=== PATIENT | male | born 1940 ===

== ENCOUNTER 2023-01-18 12:33 | Emergency (ER) | payer MEDICARE, BC, SELFPAY ==
[2023-01-18 12:36] VITALS: BP 177/124; PULSE 105; RESP 16; TEMP 36.7; O2SAT 94; BMI 27.2
--- NOTE | 2023-01-18 12:39 | XR_ITS ---
WS: [id number] PORTABLE CHEST HISTORY: dyspnea/cough COMPARISON: None available. Prior CABG. Coarse interstitial thickening throughout both lungs. Slight elevation of the left hemidiaphragm with left pleural thickening. No dense areas of consolidation. No pleural effusion or pneumothorax. Cardiac size: Mildly enlarged cardiac silhouette. Mediastinum/Aorta: Mild atherosclerosis aorta. No osseous abnormality seen. IMPRESSION: 1. Chronic interstitial lung disease. Probably related to smoking. 2. No pneumonia. 3. Very slight blunting of the left costophrenic angle is probably pleural thickening. 4. Prior CABG.
--- NOTE | 2023-01-18 12:49 | ECG_ITS ---
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 Measurements Intervals [place] Rate: 96 P: 0 NV: 0 QRS: 2 QRSD: 106 T: 78 QT: 369 QTc: 468 Interpretive Statements ATRIAL FIBRILLATION WITH ABERRANT CONDUCTION OR VENTRICULAR PREMATURE COMPLEXES NONSPECIFIC ST & T-WAVE ABNORMALITY ABNORMAL RHYTHM ECG No previous ECG available for comparison Electronically Signed On 01-18-2023 14:26:07 CDT by Cody Hoyos M.D. [id number]
--- NOTE | 2023-01-18 13:04 | W.ED.SOB ---
HPI - SOB/Dyspnea General: Chief Complaint: Shortness of Breath/Dyspnea Stated Complaint: resp distress Time Seen by Provider: 01/18/23 12:38 Source: patient Mode of arrival: ambulatory History of Present Illness: HPI Narrative: 82-year-old male who presents to the emergency room with complaints of shortness of breath and orthopnea. Patient reports he has been short of breath for years but recently has worsened slightly and he has noticed more orthopnea. He denies any chest pain at this time no swelling in his legs. He does have a known history of coronary disease he is on baby aspirin daily and lisinopril. Known history of atrial fibrillation but is not on any anticoagulants. MD elicited complaint: shortness of breath and cough Onset (ago): year(s) Timing: intermittent Exacerbating factors: lying flat and exertion Relieving factors: rest and upright position Associated symptoms: Reports orthopnea; Deny abdominal pain, chest congestion, chest pain, cough, diaphoresis, dizziness, extremity pain, fever(s), hemoptysis, lightheadedness, myalgias, nausea, palpitations, paresthesias, polydipsia, polyuria, rash, sense of impending doom, syncope or vomiting Treatment prior to arrival: none Review of Systems Const: Denies: fever(s), chills, fatigue, malaise or diaphoresis Card: Reports: dyspnea on exertion and orthopnea; Denies: chest pain, palpitations, lightheadedness or syncope Resp: Reports: dyspnea; Denies: productive cough, non-productive cough, hemoptysis or chest congestion GI: Denies: abdominal pain, nausea or vomiting : Denies: flank pain, dysuria, urinary frequency or urinary urgency Musc: Denies: neck pain, back pain or extremity pain Skin/Breast: Denies: rash or pruritus Neuro: Denies: dizziness Endo: Denies: polyuria or polydipsia PFSH ED PFSH: Family History Sister Cancer breast CAD (coronary artery disease) Brother Diabetes CAD (coronary artery disease) Father Diabetes CAD (coronary artery disease) Social History Marital status: Physical Exam Const: GENERAL APPEARANCE: cooperative and comfortable ORIENTATION/CONSCIOUSNESS: Yes awake, Yes oriented to person, Yes oriented to place and Yes oriented to time HENMT: COMMON NORMALS: normocephalic, atraumatic and hearing grossly normal bilaterally HEAD & SCALP: normocephalic and atraumatic Resp: COMMON NORMALS: normal respiratory effort, No retractions and No use of accessory muscles AUSCULTATION: crackles Cardio: COMMON NORMALS: regular rate and No murmurs present (Cardio) RATE: regular rate RHYTHM: abnormal rhythm irregularly irregular GI: COMMON NORMALS: Soft to palpation and No hepatosplenomegaly present AUSCULTATION: Yes normoactive bowel sounds PALPATION: Yes Soft to palpation, No Tenderness to palpation present (GI), No Guarding due to palpation present (GI) and Yes No hepatosplenomegaly present Extremity: COMMON NORMALS: normal to inspection, capillary refill normal, no clubbing, cyanosis or edema, no calf tenderness and no pedal edema Neuro: SENSORIUM/ORIENTATION: Yes oriented to person, Yes oriented to place and Yes oriented to time Skin: COMMON NORMALS: no rashes or lesions noted GENERAL SKIN EXAM: no rashes or lesions noted Course Vital Signs: Vital signs: Vital Signs Temperature 98.0 F 01/18/23 12:36 Pulse Rate 86 01/18/23 15:46 Respiratory Rate 18 01/18/23 15:46 Blood Pressure 145/86 01/18/23 15:46 Pulse Oximetry 94 01/18/23 15:46 Oxygen Delivery Me thod Room Air 01/18/23 13:21 MDM - SOB/Dyspnea Medical Decision Making Symptoms improved after diuresis patient had significant amount of output. BNP is elevated. We will set him up for an outpatient echocardiogram start on Lasix 20 mg daily. Follow-up with his primary care doctor towards the end of this week. Medical Records I reviewed the patient's medical records. Lab Data I reviewed the patient's lab results. 01/18/23 12:58 01/18/23 12:58 Labs/Radiology: Laboratory Results WBC 9.9 10^3/uL (4.0-10.0) 01/18/23 12:58 RBC 4.72 10^6/uL (4.1-5.3) 01/18/23 12:58 Hgb 12.6 g/dL (11.7-16.6) 01/18/23 12:58 Hct 39.9 % (42.0-52.0) L 01/18/23 12:58 MCV 84.5 fl (80-94) 01/18/23 12:58 MCH 26.7 pg (28.0-34.0) L 01/18/23 12:58 MCHC 31.6 g/dL (30.0-36.0) 01/18/23 12:58 RDW 16.8 % (12.1-15.1) H 01/18/23 12:58 Plt Count 276 10^3/cmm (130-400) 01/18/23 12:58 MPV 11.0 fL (7.4-10.4) H 01/18/23 12:58 Neut % (Auto) 75.9 % 01/18/23 12:58 Lymph % (Auto) 14.4 % 01/18/23 12:58 [place] % (Auto) 8.3 % 01/18/23 12:58 Eos % (Auto) 0.8 % 01/18/23 12:58 Baso % (Auto) 0.3 % 01/18/23 12:58 Neut # (Auto) 7.49 10^3/uL (1.8-7.7) 01/18/23 12:58 Lymph # (Auto) 1.4 10^3/uL (0.8-4.8) 01/18/23 12:58 [place] # (Auto) 0.8 10^3/uL (0.2-0.9) 01/18/23 12:58 Eos # (Auto) 0.1 10^3/uL (0.0-0.8) 01/18/23 12:58 Baso # (Auto) 0.0 10^3/uL (0.0-0.1) 01/18/23 12:58 Nucleated RBC % (auto) 0 % 01/18/23 12:58 Nucleated RBCs # 0.0 /100WBC 01/18/23 12:58 Sodium 139 mmol/L (136-145) 01/18/23 12:58 Potassium 4.3 mmol/L (3.5-5.1) 01/18/23 12:58 Chloride 106 mmol/L (98-107) 01/18/23 12:58 Carbon Dioxide 21 mmol/L (22-29) L 01/18/23 12:58 Anion Gap 16.3 (5-19) 01/18/23 12:58 BUN 16 mg/dL (8-23) 01/18/23 12:58 Creatinine 0.7 mg/dL (0.7-1.2) 01/18/23 12:58 GFR Calculation Not Reportable 01/18/23 12:58 Glucose 102 mg/dL (65-115) 01/18/23 12:58 Calculated Osmolality 289 mOsm/kg (285-295) 01/18/23 12:58 Calcium 8.5 mg/dL (8.5-10.5) 01/18/23 12:58 Total Bilirubin 0.6 mg/dL (0.15-1.2) 01/18/23 12:58 AST 23 U/L (0-40) 01/18/23 12:58 ALT 25 U/L (0-41) 01/18/23 12:58 Alkaline Phosphatase 112 U/L (40-130) 01/18/23 12:58 Troponin T Baseline 24 ng/L (0-15) H 01/18/23 12:58 Troponin T 120 Minute 25.06 ng/L (0-15) H 01/18/23 15:08 Delta Troponin T 1.06 ABS# (0-10) 01/18/23 15:08 NT-Pro-B Natriuret Pep 4454 pg/mL (0-450) H 01/18/23 12:58 Total Protein 6.6 g/dL (6.6-8.7) 01/18/23 12:58 Albumin 4.0 g/dL (3.5-5.2) 01/18/23 12:58 Globulin 2.6 g/dL (1.3-4.6) 01/18/23 12:58 Discharge Plan Discharge Patient Disposition: Home Clinical Impression: Congestive heart failure, Benign essential HTN Condition: Stable Prescriptions: New Lasix 20 mg tablet 20 mg PO DAILY Qty: 30 0RF No Action lisinopril [Prinivil] 10 mg tablet 20 mg PO BID aspirin [Adult Low Dose Aspirin] 81 mg tablet,delayed release (DR/EC) 81 mg PO DAILY Discharge Orders: Discharge ED (Routine); Ordered 01/18/23 Ordered By: Paul Bull Referrals: Je Deal MD [Primary Care Provider] - Discharge Diet: Cardiac Discharge Activity: Increase activity as tolerated Patient Instructions: Opioid Safety, Pain Management Activity Restrictions/Additional Instructions: You were seen today for shortness of breath. Recommend these are Lasix 20 mg once daily. Continue your other medications. You should reevaluate with your doctor within the next week to have a basic metabolic profile rechecked and reevaluate your blood pressure. Return to emergency room any worsening problems. We did evaluate your oxygen needs, he did not qualify for supplemental oxygen when tested. Coding Level of Care Code ED Production Recovery Operator for Haresh Clark
[2023-01-18 13:06] LABS: Basophils % 0.3 %; Eosinophils # 0.1 10^3/uL (0.0-0.8); Eosinophils % 0.8 %; Hematocrit 39.9 % (42.0-52.0); Hemoglobin 12.6 g/dL (11.7-16.6); Lymphocytes # 1.4 10^3/uL (0.8-4.8); Lymphocytes % 14.4 %; Mean Corpuscular HGB Conc 31.6 g/dL (30.0-36.0); Mean Corpuscular Hemoglobin 26.7 pg (28.0-34.0); Mean Corpuscular Volume 84.5 fl (80-94); Monocytes # 0.8 10^3/uL (0.2-0.9); Monocytes % 8.3 %; Neutrophils # 7.49 10^3/uL (1.8-7.7); Neutrophils % 75.9 %; Nucleated Red Blood Cells % 0 %; Platelet Count 276 10^3/cmm (130-400); Red Blood Count 4.72 10^6/uL (4.1-5.3); Red Cell Distribution Width 16.8 % (12.1-15.1); White Blood Count 9.9 10^3/uL (4.0-10.0)
[2023-01-18] MEDS: FUROsemide 10 mg/mL SDV 4mL 40 MG IVP (13:18)
[2023-01-18 13:21] VITALS: BP 184/130; PULSE 109; RESP 24; O2SAT 92
[2023-01-18 13:22] LABS: Troponin(5th) Baseline 24 ng/L (0-15)
[2023-01-18 13:41] VITALS: BP 172/109; PULSE 109; RESP 16; O2SAT 92
[2023-01-18 13:43] LABS: Alanine Aminotransferase 25 U/L (0-41); Alkaline Phosphatase 112 U/L (40-130); Anion Gap 16.3 (5-19); Aspartate Amino Transferase 23 U/L (0-40); Blood Urea Nitrogen 16 mg/dL (8-23); Calcium 8.5 mg/dL (8.5-10.5); Carbon Dioxide 21 mmol/L (22-29); Chloride 106 mmol/L (98-107); Globulin 2.6 g/dL (1.3-4.6); Glucose 102 mg/dL (65-115); Osmolality Calculated 289 mOsm/kg (285-295); Potassium 4.3 mmol/L (3.5-5.1); Sodium 139 mmol/L (136-145); Total Bilirubin 0.6 mg/dL (0.15-1.2); Total Protein 6.6 g/dL (6.6-8.7)
[2023-01-18 14:23] LABS: NT Pro B Type Natriuretic Pept 4454 pg/mL (0-450)
--- NOTE | 2023-01-18 14:37 | ECG_ITS ---
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 Measurements Intervals [place] Rate: 97 P: 0 NV: 0 QRS: 13 QRSD: 108 T: 66 QT: 361 QTc: 461 Interpretive Statements ATRIAL FIBRILLATION NONSPECIFIC ST & T-WAVE ABNORMALITY ABNORMAL RHYTHM ECG Compared to ECG 01/18/2023 12:49:58 Ventricular premature complex(es) no longer present Aberrant conduction of supraventricular beat(s) no longer present T-wave abnormality still present Electronically Signed On 01-19-2023 3:52:01 CDT by Jeannie Celeste M.D. [id number]
[2023-01-18 14:54] VITALS: O2SAT 92; O2SAT 95
[2023-01-18 15:15] VITALS: BP 153/93; PULSE 86; RESP 20; O2SAT 93
[2023-01-18 15:46] VITALS: BP 145/86; PULSE 86; RESP 18; O2SAT 94
[2023-01-18 15:57] LABS: Troponin 5 2HR 25.06 ng/L (0-15); Troponin 5 2HR Delta 1.06 ABS# (0-10)
== END 2023-01-18 16:24 | disposition home or self-care (01) ==
PROVIDERS: Emergency Provider Family Medicine; PCP Urology
DX: I11.0 Hypertensive heart disease with heart failure (principal); I50.9 Heart failure, unspecified; Z79.82 Long term (current) use of aspirin; I70.0 Atherosclerosis of aorta
CPT/HCPCS: 36415; 71045; 80053; 83880; 84484; 85025; 93005; 96374; 99285; J1940

== ENCOUNTER 2023-02-19 08:58 | Outpatient (CLI) | payer MEDICARE, SELFPAY ==
--- NOTE | 2023-02-19 | USCV_ITS ---
Goran Dane Age: 83 Gender: M : 1940 Exam Date: 02/19/2023 10:41 Ordering Phys: CharlaTania amezquita Technologist: KEVAN [place] [facility] [place]: CHRONIC HEART FAILURE BP: 134 / 80 HR: 77 Rhythm: Sinus Technical Quality: Adequate MEASUREMENTS (Male / Female) Normal Values 2D ECHO LVOT Diameter 2.0 cm LV Ejection Fraction MOD 2C 28.7 % LV Ejection Fraction 2C AL 31.6 % LA Diameter 4.2 cm LA Width 5.4 cm LA Height 6.1 cm RA Width 3.3 cm RA Height 5.5 cm Aorta at Sinotubular Diameter 2.7 cm IVC Diameter 1.9 cm M-MODE Aortic Annulus Diameter 3.0 cm LA Ao Ratio MM 1.3 MV E Point Septal Separation 0.9 cm DOPPLER AV Peak Velocity 135.0 cm/s LVOT Peak Velocity 89.0 cm/s AV Area Cont Eq vti 2.0 cm squared AV Area Cont Eq pk 2.1 cm squared MV Peak Velocity 120.0 cm/s MV Area PHT 4.9 cm squared MV E' Velocity 50.5 cm/s Mitral E to MV E' Ratio 10.5 Mitral E to LV E' Lateral Ratio 9.4 Mitral E to LV E' Septal Ratio 12.0 TR Peak Velocity 213.0 cm/s TR Peak Gradient 18.1 mmHg TR Mean Velocity 177.3 cm/s TR Mean Gradient 12.9 mmHg TR Velocity Time Integral 77.6 cm TV Peak E Velocity 68.0 cm/s Right Atrial Pressure 3.0 mmHg Pulmonary Artery Systolic Pressu 21.1 mmHg PV Peak Velocity 87.0 cm/s RV Acceleration Time 0.1 s RV Ejection Time 0.3 s RV AcT/ET 0.3 FINDINGS Left Ventricle Mildly increased left ventricular cavity size. Moderately decreased left ventricular systolic function. Left ventricular ejection fraction is estimated at 30 %. Moderate global left ventricular hypokinesis. Rhythm precludes evaluation of diastolic function. Right Ventricle Normal right ventricular size and systolic function. Right ventricular systolic pressure 21.1 mmHg. Right Atrium Normal right atrial size. Left Atrium Moderately increased left atrial size. Mitral Valve Structurally normal mitral valve. No mitral valve stenosis. Mild mitral valve regurgitation. Aortic Valve Structurally normal trileaflet aortic valve. No aortic valve stenosis. No aortic valve regurgitation. Tricuspid Valve Structurally normal tricuspid valve. No tricuspid valve stenosis. Trace to mild tricuspid valve regurgitation. Pulmonic Valve Structurally normal pulmonic valve. No pulmonary valve stenosis. Trace pulmonary valve regurgitation. Pericardium No pericardial effusion. Aorta Normal size aortic root and proximal ascending aorta. IVC Normal IVC dimension with >50% respiratory change of the inferior vena cava. CONCLUSIONS 1. Mildly increased left ventricular cavity size. Moderately decreased left ventricular systolic function. Left ventricular ejection fraction is estimated at 30 %. Moderate global left ventricular hypokinesis. 2. Mild mitral valve regurgitation. 3. Moderately increased left atrial size. 4. No prior similar studies to compare. Jeannie Celeste MD (Electronically Signed) Final Date: 04 March 2023 16:14 S
== END 2023-02-19 08:59 | disposition home or self-care (01) ==
LOC: RAD 09:05
PROVIDERS: PCP Family Medicine; Visit Provider Nurse Practitioner Family
DX: I50.9 Heart failure, unspecified (principal); I34.0 Nonrheumatic mitral (valve) insufficiency; I51.7 Cardiomegaly
CPT/HCPCS: 93306

== ENCOUNTER 2025-04-28 05:04 | Inpatient (IN) | payer MEDICARE, SELFPAY ==
[2025-04-28] VITALS (22 sets, daily range): BP systolic 110–157; BP diastolic 70–106; PULSE 77–100; RESP 17–34; TEMP 36.3–36.9; O2SAT 89–97; BMI 25.8
--- OUTSIDE RECORDS SUMMARY | 2025-04-28 05:13 | XMS_ITS | Clinical Summary ---
Author Organization [facility] Address [address] [place]: Epic Prelude ADT SHAINA BONILLA [address] Care Team Providers Care Nitroglycerin Distributor Name Role Phone Ronen Macias MD Primary Care Provider [phone] [phone] Allergies No known active allergies Medications acetaminophen (TYLENOL) 500 mg tablet Take 500 mg by mouth every 6 hours as needed for Pain. 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 25 Tablet 3 5 Active Additional Information Patient not taking.Reported on 02/16/2025 sacubitriL-valsa rtan (ENTRESTO) 24-26 mg TabletIndication s:Chronic combined systolic (congestive) and diastolic (congestive) heart failure (CMS/HCC) Take 1 Tablet by mouth 2 times daily. 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 200 Tablet 3 5 Active apixaban (Eliquis) 5 mg tabletIndication s:Atrial fibrillation with slow ventricular response (CMS/HCC) Take 1 Tablet (5 mg) by mouth 2 times daily. 200 Tablet 3 5 Active empagliflozin (JARDIANCE) 10 mg tabletIndication s:Chronic combined systolic (congestive) and diastolic (congestive) heart failure (CMS/HCC) Take 1 Tablet (10 mg) by mouth daily in the morning. 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 03/01/2017 History of CVA (cerebrovascular accident) 2016 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 05/16/2016 Atrial fibrillation with slow ventricular respon se 05/16/2016 Sinus bradycardia 01/13/2016 PVC (premature ventricular contraction) 01/13/20 16 Nocturnal leg cramps 11/01/2014 Chronic anticoagulation 08/21/2013 GERD (gastroesophageal reflux disease) 1 Hyperlipidemia 09/22/2010 Overview (10/03/2020): LDL: 65 (09/15) HDL: 62 (09/15) Tobacco abuse, in remission 07/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 Overview (10/03/2020): US Aorta: Normal (07/16) Quit 1986 HTN (hypertension), benign 07/12/2008 History of gout Resolved Problems Problem Noted Date Diagnosed Date Resolved Date Cardiac LV ejection fraction 10-20% 07/31/2023 08/17/2023 Congestive heart failure 07/31/202305/2024 Elevated troponin 07/28/2023 08/17/[address] scan of head 07/28/202305/2024 NSTEMI (non-ST elevated myoc ardial infarction) 07/27/2023 08/17/2023 NOLVIA (acute kidney injury) 07/27/2023 AVF (arteriovenous fistula) 06/12/2021 08/17/2023 COPD 06/09/2018 06/09/2018 Acute on chronic systolic (c ongestive) heart failure 06/09/2018 08/17/2023 CVA (cerebral vascular accident) 07/22/2013 03/01/2017 Atrial fibrillation 07/22/2013 03/01/20 17 CAD (Coronary Artery Disease ), S/P CABG x 6 (03/13) 06/12/2021 Overview (10/03/2020): Followed by Dr. 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; Iron deficiency anemia, unspecified iron deficiency anemia type; Dual ICD (implantable cardioverter-defibril lator) in place; Microcytic anemia 02/07/2025 External Device Data STL ABSTRACTION Provider, Abstract 01/30/2025 Telephone [facility] [address] [address] Ronen Macias MD Patient Communication from Last 3 Months Immunizations Immunization Administration Dates Next Due ([employer])(12 YR UP) COVID-19 VACCINE - EMERGENCY USE AUTHORIZATION, MRNA, [id number](PF) 30 MCG/0.3 ML IM SUSP 01/31/2021,01/07/2021 (PNEUMOVAX 23)(50 YRS UP) PN EUMOCOCCAL POLYSACCHARIDE (PPV23) 0.5 ML, IM 04/05/2007 (PREVNAR 13)(6 WKS UP) PNEUM OCOCCAL CONJUGATE (PCV13) 0.5 ML, IM 05/18/2014 (TDVAX)(7 YRS UP) TETANUS AN D DIPHTHERIA TOXOIDS, ADSORBED (2 LF OF TETANUS TOXOID AND 2 LF OF DIPHTHERIA TOXOID), 0.5ML (PF), IM 03/30/2005 INFLUENZA VACCINE HIGH DOSE QUADRIVALENT 65 YR UP PF IM 05/06/2021(Deferred: Other (See comments) - Will be documented by nurse),03/28/2020 Influenza Seasonal Unspecifi ed Formulation IM 03/24/2007,03/24/2006,03/17/2004 Influenza Vaccine High Dose 65+ Yrs IM 1 06/19/2018,04/21/2018,03/01/2017,04/02,03/28/2015,03/01/2014 Influenza Vaccine Nasal 04/04/2008 Influenza Vaccine Split 3+ Yrs IM 02/27/2013,11/2009,03/13/2009 Influenza Vaccine Split 3+ Yrs PF IM 04/05/2012, 03/26/2011 Family History Medical History Relation Name Comments Diabetes Brother 1 Heart Disease Brother 1 Diabetes Father Heart Disease Father Breast Cancer Sister Heart Disease Sister Cancer Neg Hx Colon Cancer Neg Hx Relation Name Status Comments Brother 1 Brother 2 Father Sister Social History Tobacco Use Types Packs/Day Years Used Date Smoking Tobacco: Former Cigarettes 2 Q uit: 06/07/1986 Smokeless Tobacco: Never Tobacco Cessation:Counseling Given: Not Answered Alcohol Use Standard Drinks/Week Comments Yes 1 (1 standard drink = 0.6 oz pur e alcohol) occasional beer Feeling Safe Answer Date Recorded Are you in a relationship wi th someone who hurts you emotionally and/or physically? No 08/12/2023 Food Insecurity Answer Date Recorded Social/Environmental Concerns No concerns Transportation Needs Answer Date Record ed Social/Environmental Concerns No concerns Housing Stability Answer Date Recorded Social/Environmental Concerns No concerns Utility Needs Answer Date Recorded Social/Environmental Concerns No concerns Sex and Gender Information Value Date Recorded Sex Assigned at Not on file Legal Sex Male 1:21 PM RESOURCE CONSERVATION MANAGER Gender Identity Not on file Sexual Orientation Not on file Last Filed Vital Signs Vital Sign Reading Time Taken Comments Blood Pressure 116/74 02/16/2025 1:03 PM CDT Pulse 87 02/16/2025 1:03 PM CDT Temperature 36.1 C (97 F) 02/16/2025 1:03 PM CDT Respiratory Rate 18 02/16/2025 1:03 PM CDT Oxygen Saturation 99% 02/16/2025 1:03 PM CDT Inhaled Oxygen Concentration - - Weight 86.2 kg (190 lb) 02/16/2025 1:03 PM CDT Height 177.8 cm (5' 10 ) 02/16/2025 1:03 PM CDT Body Mass Index 27.26 02/16/2025 1:03 PM CDT Plan of Treatment Upcoming Encounters Date Type Department Care Team (Late st Contact Info) Description 06/11/2025 11:40 AM RESOURCE CONSERVATION MANAGER Office Visit [facility] Medicine [address] [address] Ronen Macias MD [address] [facility] [address] [place] [address] Health Maintenance Due Date Last Done Comments ZOSTER VACCINE (1 of 2) 1991 DTAP/TDAP/TD VACCINES (1 - Tdap) 03/31/2005 03/30/20 05 RSV VACCINE (60+ or ) (1 - 1-dose 75+ series) 01/20/2016 Medicare Advantage (MD) Preventative Visit/Annual Wellness Visit 06/07/2024 INFLUENZA VACCINE (#1) 2025 , 04/19/2019, 04/21/2018, Additional history exists COVID-19 Vaccine (3 - 2024-2 6 season) 2025 01/31/2021, 01/07/2021 PNEUMOCOCCAL VACCINE 50+ YEARS Completed 05/18/2014 , 04/05/2007 COLORECTAL SCREENING Discontinued 06/20/2018 Colorectal Cancer Screening Discontinued FIT-DNA Q 3 years Discontinued FIT/FOBT Q 1 year Discontinued Flex Sig/CT Colonography Q 5 years Discontinued Goals Goal Patient Goal Type Associated Problems Recent Progress Patient-Stated? Author Heart Failure Goal Care Plan Heart Failure Problem No Gunjan Sena LPN Medical Devices Implanted Type Area Town Manager Device Identifier Shelf Expiration Date Model / Serial / Lot Closure Perclose Prostyle Sut Mediate [id number] - [id number] Implanted:Qty : 1 on 07/29/2023 at Closure Device Right: Groin SAMANIEGO- VASC DEVICE 05/06/2025 [id number] / / [id number] Physician Asst-D [place] Xt Hf Quad Mri [id number] Surescan [id number] - [id number] Implanted:Qty : 1 on 07/30/2023 by Inocencio Doe MD at Defibrillator Left: Chest [employer]- CARD RHYTHM MGMT 10/02/2024 [id number] / [id number] 1S / . Lead Sprint Quattro Secure 62cm [id number] - Csc - [id number] Implanted:Qty : 1 on 07/30/2023 by Inocencio Doe MD at Lead Left: Chest [employer]- CRM - BULK BUY 05/11/2025 [id number] / [id number] 1V / Lead Attain [address]cm St Vent Quad [id number] - [id number] Implanted:Qty : 1 on 07/30/2023 by Inocencio Doe MD at Lead Left: Chest [employer]- CARD RHYTHM MGMT 05/26/2025 [id number] / [id number] 5V / 6fr Angioseal Vip- Implanted:Qty : 1 on 05/29/2021 by Travis Gee MD Other Right: Groin [id number] 02/04/2022 [id number] / / [id number] Description:6fr AngioSeal P implanted right femoral artery Procedures Procedure Name Priority Date/Time Associated Diagnosis Comments CBC WITH DIFFERENTIAL Routine 02/16/2025 1:35 PM CDT Microcytic anemia IRON, TIBC, AND PERCENT SATURATION Routine 02/16/2025 1:35 PM CDT Microcytic anemia from Last 3 Months Results * (ABNORMAL) IRON, TIBC, AND PERCENT SATURATION (02/16/2025 1:35 PM CDT) IRON 229(H) 50 - 180 mcg/dL [facility] TIBC 251 250 - 425 mcg/dL (calc) [facility] IRON % SATURATION 91(H) 20 - 48 % (calc) [facility] Comment: Test Performed at: [facility] [address] [place] [address] Michelle Alexander MD Blood 02/16/2025 1:35 PM CDT 02/17/2025 3:48 AM CDT us Ronen Macias MD CHEMISTRY ORDERABLES Aparna l Result [facility] [phone] [facility] [address] [place] [address] * (ABNORMAL) CBC WITH DIFFERENTIAL (02/16/2025 1:35 PM CDT) WBC 8.2 3.8 - 10.8 Thousand/u L [facility] RBC 4.76 4.20 - 5.80 Million/uL [facility] HEMOGLOBIN 15.1 13.2 - 17.1 g/dL [facility] HEMATOCRIT 48.2 38.5 - 50.0 % [facility] MCV 101.3(H) 80.0 - 100.0 fL [facility] MCH 31.7 27.0 - 33.0 pg [facility] MCHC 31.3(L) 32.0 - 36.0 g/dL [facility] Comment: For adults, a slight decrease in the calculated MCHC value (in the range of 30 to 32 g/dL) is most likely not clinically significant; however, it should be interpreted with caution in correlation with other red cell parameters and the patient's clinical condition. RDW 14.1 11.0 - 15.0 % [facility] PLATELETS 205 140 - 400 Thousand/u L [facility] MPV 11.4 7.5 - 12.5 fL [facility] NEUTROPHIL ABSOLUTE 5,961 1,500 - 7,800 cells/uL [facility] LYMPHOCYTE ABSOLUTE 1,287 850 - 3,900 cells/uL [facility] MONOCYTE ABSOLUTE 869 200 - 950 cells/uL [facility] EOSINOPHIL ABSOLUTE 41 15 - 500 cells/uL [facility] BASOPHILS ABSOLUTE 41 0 - 200 cells/uL [facility] NEUTROPHIL 72.7 % [facility] LYMPHOCYTES 15.7 % [facility] MONOCYTE 10.6 % [facility] EOSINOPHILS 0.5 % [facility] BASOPHILS 0.5 % [facility] Comment: Test Performed at: [facility] [address] [place] [address] Michelle Alexander MD Blood 02/16/2025 1:35 PM CDT 02/17/2025 3:48 AM CDT us Ronen Macias MD HEMATOLOGY ORDERABLES Fin al Result Performing Organization Address City/State/[facility] Co de Phone Number [facility] [phone] [facility] [address] [place] [address] from Last 3 Months Additional Health Concerns Active Problems Noted Date Diagnosed Date Heart Failure Problem 08/08/2024 Insurance [facility] [id number] [employer] Medicare Part D Advance Directives For more information, please contact: [phone] * Full Code (Latest Code Status on File) Date Activated Date Inactivated Comments 02/16/2025 1:29 PM * Full Code Date Activated Date Inactivated Comments 07/30/2023 5:43 PM 08/02/2023 1:56 PM * Full Code Date Activated Date Inactivated Comments 07/27/2023 5:32 PM 07/30/2023 5:43 PM * Full Code Date Activated Date Inactivated Comments 05/28/2021 4:47 PM 05/30/2021 1:28 PM Care Teams Nitroglycerin Distributor Relationship Specialty Start Date End Date Ronen Macias MD [address] [phone] PCP - General Family Practice 03/01/17
--- OUTSIDE RECORDS SUMMARY | 2025-04-28 05:13 | XMS_ITS | Encounter Summary ---
Author Organization [facility] Address [address] [place] [address] Care Team Providers Care Alarm Mechanism Adjuster Name Role Phone Ronen Macias MD Primary Care Provider [phone] Encounter Details Date Type Department Care Team (Latest Contact Info) Description 12/20/2002 Outpatient Historical [facility] Family Medicine [place] [address] [address] Emanuel Claudio MD [address] [facility] [address] [place] [address] SCREENING MAL NEOP-RECTUM (Primary Dx) Social History Tobacco Use Types Packs/Day Years Used Date Smoking Tobacco: Never Assessed Sex and Gender Information Value Date Recorded Sex Assigned at Not on file Legal Sex Male 6:13 AM CLIENT BUSINESS MANAGER Gender Identity Not on file Sexual Orientation Not on file documented as of this encounter Plan of Treatment Not on file documented as of this encounter Visit Diagnoses Diagnosis Screening for malignant neoplasm of the rectum- Primary documented in this encounter Additional Health Concerns Infection Onset Date Last Indicated Resolved Time R/O COVID-19 05/01/2020 05/01/2020 05/01/2020 6:25 AM CLIENT BUSINESS MANAGER documented as of this encounter Care Teams Alarm Mechanism Adjuster Relationship Specialty Start Date End Date Ronen Macias MD [address] [address] PCP - General Family Practice 03/01/17 documented as of this encounter
--- OUTSIDE RECORDS SUMMARY | 2025-04-28 05:13 | XMS_ITS | Encounter Summary ---
Author Organization [facility] Address [address] [place] [address] Care Team Providers Care Rubber Tire Curer Name Role Phone Ronen Macias MD Primary Care Provider [phone] Encounter Details Date Type Department Care Team (Latest Contact Info) Description 02/11/1999 Outpatient Historical [facility] Family Medicine [address] [address] Emanuel Claudio MD [address] [address] Backache, unspecified (Primary Dx); Routine medical exam; Screening for malignant neoplasm of the rectum Social History Tobacco Use Types Packs/Day Years Used Date Smoking Tobacco: Never Assessed Sex and Gender Information Value Date Recorded Sex Assigned at Not on file Legal Sex Male 6:13 AM TUMBLER TENDER Gender Identity Not on file Sexual Orientation Not on file documented as of this encounter Plan of Treatment Not on file documented as of this encounter Visit Diagnoses Diagnosis Backache, unspecified- Primary Routine medical exam Routine general medical examination at a health care facility Screening for malignant neoplasm of the rectum documented in this encounter Additional Health Concerns Infection Onset Date Last Indicated Resolved Time R/O COVID-19 05/01/2020 05/01/2020 05/01/2020 6:25 AM TUMBLER TENDER documented as of this encounter Care Teams Rubber Tire Curer Relationship Specialty Start Date End Date Ronen Macias MD [address] [address] PCP - General Family Practice 03/01/17 documented as of this encounter
--- OUTSIDE RECORDS SUMMARY | 2025-04-28 05:13 | XMS_ITS | Encounter Summary ---
Author Organization [facility] Address [address] [place] [address] Care Team Providers Care Frame Table Operator Name Role Phone Ronen Macias MD Primary Care Provider [phone] Encounter Details Date Type Department Care Team (Late st Contact Info) Description 06/16/2007 Outpatient Historical [facility] Family Medicine [address] [phone] Vladislav Nielson MD NO ADDRESS ON FILE Social History Tobacco Use Types Packs/Day Years Used Date Smoking Tobacco: Never Assessed Sex and Gender Information Value Date Recorded Sex Assigned at Not on file Legal Sex Male 6:13 AM FIRE DEPARTMENT MARINE ENGINEER Gender Identity Not on file Sexual Orientation Not on file documented as of this encounter Plan of Treatment Not on file documented as of this encounter Visit Diagnoses Not on filedocumented in this encounter Additional Health Concerns Infection Onset Date Last Indicated Resolved Time R/O COVID-19 05/01/2020 05/01/2020 05/01/2020 6:25 AM FIRE DEPARTMENT MARINE ENGINEER documented as of this encounter Care Teams Frame Table Operator Relationship Specialty Start Date End Date Ronen Macias MD [address] [address] PCP - General Family Practice 03/01/17 documented as of this encounter
--- OUTSIDE RECORDS SUMMARY | 2025-04-28 05:13 | XMS_ITS | Encounter Summary ---
Author Organization [facility] Address [address] [place] [address] Care Team Providers Care Goat Farmer Name Role Phone Ronen Macias MD Primary Care Provider [phone] Encounter Details Date Type Department Care Team (Latest Contact Info) Description 04/22/2007 Outpatient Historical [facility] [address] [place] [address] Trell Omalley MD [address] [facility] [address] [place] [address] Congestive Heart Failure, Unspecified (CMS/HCC) Social History Tobacco Use Types Packs/Day Years Used Date Smoking Tobacco: Never Assessed Sex and Gender Information Value Date Recorded Sex Assigned at Not on file Legal Sex Male 6:13 AM BUILDING CLEANING SUPERVISOR Gender Identity Not on file Sexual Orientation Not on file documented as of this encounter Plan of Treatment Not on file documented as of this encounter Visit Diagnoses Diagnosis Congestive heart failure, unspecified documented in this encounter Additional Health Concerns Infection Onset Date Last Indicated Resolved Time R/O COVID-19 05/01/2020 05/01/2020 05/01/2020 6:25 AM BUILDING CLEANING SUPERVISOR documented as of this encounter Care Teams Goat Farmer Relationship Specialty Start Date End Date Ronen Macias MD [address] [phone] PCP - General Family Practice 03/01/17 documented as of this encounter
--- OUTSIDE RECORDS SUMMARY | 2025-04-28 05:13 | XMS_ITS | Encounter Summary ---
Author Organization [facility] Address [address] [place] [address] Care Team Providers Care Defense Attorney Name Role Phone Ronen Macias MD Primary Care Provider [phone] [phone] Encounter Details Date Type Department Care Team (Latest Contact Info) Description 07/25/2004 Outpatient Historical [facility] Family Medicine [place] [address] [address] Emanuel Claudio MD [address] [address] ACTINIC KERATOSIS (Primary Dx); HYPERTENSION NOS Social History Tobacco Use Types Packs/Day Years Used Date Smoking Tobacco: Never Assessed Sex and Gender Information Value Date Recorded Sex Assigned at Not on file Legal Sex Male 6:13 AM MORTARMAN Gender Identity Not on file Sexual Orientation Not on file documented as of this encounter Plan of Treatment Not on file documented as of this encounter Visit Diagnoses Diagnosis Actinic keratosis- Primary Unspecified essential hypertension documented in this encounter Additional Health Concerns Infection Onset Date Last Indicated Resolved Time R/O COVID-19 05/01/2020 05/01/2020 05/01/2020 6:25 AM MORTARMAN documented as of this encounter Care Teams Defense Attorney Relationship Specialty Start Date End Date Ronen Macias MD [address] [address] PCP - General Family Practice 03/01/17 documented as of this encounter
--- OUTSIDE RECORDS SUMMARY | 2025-04-28 05:13 | XMS_ITS | Clinical Summary ---
Author Organization [facility] Address [address] [place] [address] Care Team Providers Care Ged Preparation Teacher Name Role Phone Ronen Macias MD Primary Care Provider +1 [phone] Allergies No known active allergies Medications aspirin (ECOTRIN EC) 81 mg Tablet, Delayed Release (E.C.) Take 1 Tab by mouth daily. 11/07/2013 Active nitroglycerin (NITROSTAT) 0.4 mg Tablet, Sublingual Place 1 Tablet (0.4 mg) under tongue every 5 minutes as needed for Chest Pain Not to exceed 3 doses, if no relief of chest pain to seek medical attention. Do not take if systolic B/P below 100. 25 Tablet 2 05/11/2016 Active multivitamin (DAILY-LENNOX) tablet Take 1 Tablet by mouth daily. Active furosemide (LASIX) 20 mg tablet Take 1 Tablet (20 mg) by mouth daily. 90 Tablet 3 07/31/2019 Active potassium chloride (KLOR-CON) 10 mEq Extended Release tablet Take 1 Tablet (10 mEq) by mouth daily. 90 Tablet 3 07/31/2019 Active Xarelto 20 mg Tablet TAKE 1 TABLET DAILY 90 Tablet 3 01/08/2020 Active esomeprazole (NexIUM) 40 mg Capsule, Delayed Release(E.C.) Take 1 Capsule (40 mg) by mouth daily before breakfast. 30 Capsule 05/01/2020 Active ferrous sulfate 325 mg (65 mg iron) tablet Take 1 Tablet (325 mg) by mouth 2 times daily with meals. 180 Tablet 1 05/04/2020 Active lisinopriL (PRINIVIL) 10 mg tablet TAKE 2 TABLETS TWICE A DAY (DOSE CHANGE) 360 Tablet 3 07/24/2020 Active Active Problems Problem Noted Date Diagnosed Date Congestive heart failure 06/09/2018 Cognitive deficits following stroke 03/01/2017 History of CVA (cerebrovascular accident) 2016 Coronary artery disease invo lving [place] coronary artery of [place] heart without angina pectoris 05/16/2016 Paroxysmal atrial fibrillation 05/16/2016 Sinus bradycardia 01/13/2016 PVC (premature ventricular contraction) 01/13/20 16 Nocturnal leg cramps 11/01/2014 Chronic anticoagulation 08/21/2013 GERD (gastroesophageal reflux disease) 1 Hyperlipidemia 09/22/2010 Overview (09/24/2010): LDL: 65 (09/15) HDL: 62 (09/15) HTN (hypertension), benign 07/12/2008 Tobacco abuse, 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 Omalley Resolved Problems Problem Noted Date Diagnosed Date Resolved Date COPD 06/09/2018 06/09/2018 CVA (cerebral vascular accident) 07/22/2013 03/01/2017 Atrial fibrillation 07/22/2013 03/01/20 17 Immunizations Immunization Administration Dates Next Due (PNEUMOVAX 23)(50 YRS UP) PN EUMOCOCCAL POLYSACCHARIDE (PPV23) 0.5 ML, IM 04/05/2007 (PREVNAR 13)(6 WKS UP) PNEUM OCOCCAL CONJUGATE (PCV13) 0.5 ML, IM 05/18/2014 (TDVAX)(7 YRS UP) TETANUS AN D DIPHTHERIA TOXOIDS, ADSORBED (2 LF OF TETANUS TOXOID AND 2 LF OF DIPHTHERIA TOXOID), 0.5ML (PF), IM 03/30/2005 INFLUENZA VACCINE HIGH DOSE QUADRIVALENT 65 YR UP PF IM 03/28/2020 Influenza Seasonal Unspecifi ed Formulation IM 03/24/2007,03/24/2006,03/17/2004 [...] Used Date Smoking Tobacco: Former Cigarettes 2 40 0 [birth year]07/1945 - 06/07/1986 Smokeless Tobacco: Never Tobacco Cessation:Counseling Given: No Alcohol Use Standard Drinks/Week Comments Yes 1 (1 standard drink = 0.6 oz pur e alcohol) occ Sex and Gender Information Value Date Recorded Sex Assigned at Not on file Legal Sex Male 6:13 AM SLEEP TECHNICIAN Gender Identity Not on file Sexual Orientation Not on file Last Filed Vital Signs Vital Sign Reading Time Taken Comments Blood Pressure 138/82 05/03/2020 10:15 AM SLEEP TECHNICIAN Pulse 88 05/03/2020 10:01 AM SLEEP TECHNICIAN Temperature 36.8 C (98.2 F) 05/03/2020 10:01 AM SLEEP TECHNICIAN Respiratory Rate 16 05/03/2020 10:01 AM SLEEP TECHNICIAN Oxygen Saturation 98% 05/03/2020 10:01 AM SLEEP TECHNICIAN Inhaled Oxygen Concentration - - Weight 9.979 kg (22 lb) 05/03/2020 10:01 AM SLEEP TECHNICIAN Height 179.1 cm (5' 10.5 ) 05/03/2020 10:[address] Body Mass Index 3.11 05/03/2020 10:01 AM SLEEP TECHNICIAN Plan of Treatment Health Maintenance Due Date Last Done Comments ZOSTER VACCINE (1 of 2) 1991 DTAP/TDAP/TD VACCINES (1 - Tdap) 03/31/2005 03/30/20 05 RSV VACCINE (60+ or ) (1 - 1-dose 75+ series) 01/20/2016 Medicare Ad[place]age ([place]) Preventative Visit/Annual Wellness Visit 06/07/2024 11/01/2014, 04/13/2005 INFLUENZA VACCINE (#1) 2025 , 04/19/2019, 04/21/2018, Additional history exists FIT/FOBT Q 1 year Discontinued 06/29/2001, , 02/11/1999 PNEUMOCOCCAL VACCINE 50+ YEARS Completed 05/18/2014 , 04/05/2007 COLORECTAL SCREENING Discontinued 06/20/2018 Colorectal Cancer Screening Discontinued FIT-DNA Q 3 years Discontinued Flex Sig/CT Colonography Q 5 years Discontinued Insurance [employer] PPO MCR Advance Directives For more information, please contact: [phone] * Full Code (Latest Code Status on File) Date Activated Date Inactivated Comments 06/20/2018 12:02 PM 06/20/2018 4:05 PM * Full Code Date Activated Date Inactivated Comments 05/17/2014 10:03 AM 05/18/2014 12:46 PM * Full Code Date Activated Date Inactivated Comments 05/14/2014 12:32 PM 05/17/2014 10:03 AM * Full Code Date Activated Date Inactivated Comments 09/18/2013 1:37 PM 09/18/2013 6:00 PM * Full Code Date Activated Date Inactivated Comments 09/18/2013 11:31 AM 09/18/2013 1:37 PM Care Teams Ged Preparation Teacher Relationship Specialty Start Date End Date Ronen Macias MD [address] [address] PCP - General Family Practice 03/01/17
--- OUTSIDE RECORDS SUMMARY | 2025-04-28 05:13 | XMS_ITS | Encounter Summary ---
Author Organization [facility] Address [address] [place] [address] Care Team Providers Care Staff Anesthesiologist Name Role Phone Ronen Macias MD Primary Care Provider [phone] [phone] Encounter Details Date Type Department Care Team (Late st Contact Info) Description 05/23/2007 Outpatient Historical [facility] Cardiology- [place] [address] [place] [address] Trell Omalley MD [address] [facility] [address] [place] [address] Social History Tobacco Use Types Packs/Day Years Used Date Smoking Tobacco: Never Assessed Sex and Gender Information Value Date Recorded Sex Assigned at Not on file Legal Sex Male 6:13 AM STRINGED INSTRUMENT REPAIRER Gender Identity Not on file Sexual Orientation Not on file documented as of this encounter Plan of Treatment Not on file documented as of this encounter Visit Diagnoses Not on filedocumented in this encounter Additional Health Concerns Infection Onset Date Last Indicated Resolved Time R/O COVID-19 05/01/2020 05/01/2020 05/01/2020 6:25 AM STRINGED INSTRUMENT REPAIRER documented as of this encounter Care Teams Staff Anesthesiologist Relationship Specialty Start Date End Date Ronen Macias MD [address] [facility] [address] [place] [address] PCP - General Family Practice 03/01/17 documented as of this encounter
--- OUTSIDE RECORDS SUMMARY | 2025-04-28 05:13 | XMS_ITS | Encounter Summary ---
Author Organization [facility] Address [address] [place] [address] Care Team Providers Care Payable Manager Name Role Phone Ronen Macias MD Primary Care Provider [phone] [phone] Encounter Details Date Type Department Care Team (Late st Contact Info) Description 05/23/2007 Outpatient [facility] [address] [place] [address] Virginie Trinh, WATER REGISTRAR NO ADDRESS ON FILE Social History Tobacco Use Types Packs/Day Years Used Date Smoking Tobacco: Never Assessed Sex and Gender Information Value Date Recorded Sex Assigned at Not on file Legal Sex Male 6:13 AM VEGETABLE LOADER Gender Identity Not on file Sexual Orientation Not on file documented as of this encounter Plan of Treatment Not on file documented as of this encounter Visit Diagnoses Not on filedocumented in this encounter Additional Health Concerns Infection Onset Date Last Indicated Resolved Time R/O COVID-19 05/01/2020 05/01/2020 05/01/2020 6:25 AM VEGETABLE LOADER documented as of this encounter Care Teams Payable Manager Relationship Specialty Start Date End Date Ronen Macias MD [address] [facility] [address] [place] [address] PCP - General Family Practice 03/01/17 documented as of this encounter
--- OUTSIDE RECORDS SUMMARY | 2025-04-28 05:13 | XMS_ITS | Encounter Summary ---
Author Organization [facility] Address [address] [place] [address] Care Team Providers Care Spool Sander Name Role Phone Ronen Macias MD Primary Care Provider [phone] [phone] Reason for Referral * Radiology Services (Routine) - Closed Specialty Diagnoses / Procedures Referred By Contac t Referred To Contact Radiology Diagnoses Chronic systolic congestive heart failure (CMS/HCC) Ischemic cardiomyopathy Coronary artery disease involving [place] coronary artery of [place] heart without angina pectoris Sinus bradycardia Paroxysmal atrial fibrillation (CMS/HCC) Procedures NM CARDIAC MUGA SCAN NM CARDIAC MUGA SCAN + 1 PASS CHG GATED HEART, PLANAR SINGLE CHG HEART FIRST PASS ADD-ON Gio Watkins MD [facility] Nuclear Medicine [address] [place] [address] Phone: tel: fax: Referral ID Status Reason Start Date Expiration Date V isits Requested Visits Authorized [id number] Closed [facility] TO SCHEDULE (SGF) 09/25/2019 03/23/2020 1 1 ING RECOVERY TEACHER Encounter Details Date Type Department Care Team (Latest Contact Info) Description 11/27/2019 Ancillary Orders [facility] [address] [place] [address] [address] [place] [address] Gio Watkins MD NO ADDRESS ON FILE Chronic systolic congestive heart failure (CMS/HCC); Ischemic cardiomyopathy; Coronary artery disease involving [place] coronary artery of [place] heart without angina pectoris; Sinus bradycardia; Paroxysmal atrial fibrillation (CMS/HCC) Social History Tobacco Use Types Packs/Day Years Used Date Smoking Tobacco: Former Cigarettes 2 40 0 06/07/1946 - 06/07/1986 Smokeless Tobacco: Never Alcohol Use Standard Drinks/Week Comments Yes 1 (1 standard drink = 0.6 oz pur e alcohol) occ Sex and Gender Information Value Date Recorded Sex Assigned at Not on file Legal Sex Male 6:13 AM READING RECOVERY TEACHER Gender Identity Not on file Sexual Orientation Not on file COVID-19 Exposure Response Date Recorded In the last month, have you been in contact with someone who was confirmed or suspected to have Coronavirus / COVID-19? No / Unsure 11/27/2019 11:21 AM CDT documented as of this encounter Plan of Treatment Not on file documented as of this encounter Results * NM CARDIAC MUGA SCAN (11/27/2019 1:00 PM CDT) EJECTION FRACTION 50 50 - 65 % INTERFACE SYSTEM 11/27/2019 1:55 PM CDT Impressions INTERFACE SYSTEM - 11/27/2019 2:08 PM CDT IMPRESSION: 1. Low normal left ventricle systolic function with ejection fraction of 50% 2. Mildly reduced right ventricle systolic function with ejection fraction of 44% 3. No previous study available for comparison. Narrative INTERFACE SYSTEM - 11/27/2019 2:08 PM CDT Radionuclide Cardiac Function Examination at Rest, Gated First Pass, and Gated Equilibrium Procedures: Radiopharmaceutical: Tc-99m (technetium-99m) Ultratag labeled autologous erythrocytes Dose: 30.2 mCi Indication: Evaluation of ventricular function in patient with paroxysmal atrial fibrillation Right ventricular function was initially evaluated with gated first pass radionuclide angiocardiography followed by whole heart evaluation using gated equilibrium radionuclide angiocardiography in multiple projections at a heart rate of 70 beats per minute. Left ventricle systolic function was low normal and left ventricular ejection fraction was calculated at 50% Right ventricular systolic function was mildly reduced and right ventricular ejection fraction was calculated at 44% Procedure Note Fan Toribio MD - 11/27/2019 Radionuclide Cardiac Function Examination at Rest, Gated First Pass, and Gated Equilibrium Procedures: Radiopharmaceutical: Tc-99m (technetium-99m) Ultratag labeled autologous erythrocytes Dose: 30.2 mCi Indication: Evaluation of ventricular function in patient with paroxysmal atrial fibrillation Right ventricular function was initially evaluated with gated first pass radionuclide angiocardiography followed by whole heart evaluation using gated equilibrium radionuclide angiocardiography in multiple projections at a heart rate of 70 beats per minute. Left ventricle systolic function was low normal and left ventricular ejection fraction was calculated at 50% Right ventricular systolic function was mildly reduced and right ventricular ejection fraction was calculated at 44% IMPRESSION: 1. Low normal left ventricle systolic function with ejection fraction of 50% 2. Mildly reduced right ventricle systolic function with ejection fraction of 44% 3. No previous study available for comparison. us Gio Watkins MD NM ORDERABLES Final Resul t INTERFACE SYSTEM Refer to clinic/hospital department documented in this encounter Visit Diagnoses Diagnosis Chronic systolic congestive heart failure (CMS/HCC) Chronic systolic heart failure Ischemic cardiomyopathy Other specified forms of chronic ischemic heart disease Coronary artery disease involving [place] coronary artery of [place] heart without angina pectoris Sinus bradycardia Other specified cardiac dysrhythmias Paroxysmal atrial fibrillation (CMS/HCC) Atrial fibrillation Chronic systolic congestive heart failure (CMS/HCC) Chronic systolic heart failure Ischemic cardiomyopathy Other specified forms of chronic ischemic heart disease Coronary artery disease involving [place] coronary artery of [place] heart without angina pectoris Sinus bradycardia Other specified cardiac dysrhythmias Paroxysmal atrial fibrillation (CMS/HCC) Atrial fibrillation documented in this encounter Additional Health Concerns Infection Onset Date Last Indicated Resolved Time R/O COVID-19 05/01/2020 05/01/2020 05/01/2020 6:25 AM READING RECOVERY TEACHER documented as of this encounter Care Teams Spool Sander Relationship Specialty Start Date End Date Ronen Macias MD [address] [address] PCP - General Family Practice 03/01/17 documented as of this encounter
--- OUTSIDE RECORDS SUMMARY | 2025-04-28 05:13 | XMS_ITS | Encounter Summary ---
Author Organization [facility] Address [address] [place] [address] Care Team Providers Care Adjunct Mathematics Instructor Name Role Phone Ronen Macias MD Primary Care Provider [phone] [phone] Encounter Details Date Type Department Care Team (Latest Contact Info) Description 04/12/2006 Outpatient Historical [facility] Family Medicine [address] [address] Emanuel Veronica MD NO ADDRESS ON FILE Unspecified Essential Hypertension (Primary Dx); Swelling of Limb; Osteoarth NOS-Unspec; Encounter for Long-Term (Current) Use of Other Medications Social History Tobacco Use Types Packs/Day Years Used Date Smoking Tobacco: Never Assessed Sex and Gender Information Value Date Recorded Sex Assigned at Not on file Legal Sex Male 6:13 AM DUMP TRUCK OPERATOR Gender Identity Not on file Sexual Orientation Not on file documented as of this encounter Plan of Treatment Not on file documented as of this encounter Visit Diagnoses Diagnosis Unspecified essential hypertension- Primary Swelling of limb Osteoarthrosis, unspecified whether generalized or localized, unspecified site Encounter for long-term (current) use of other medications documented in this encounter Additional Health Concerns Infection Onset Date Last Indicated Resolved Time R/O COVID-19 05/01/2020 05/01/2020 05/01/2020 6:25 AM DUMP TRUCK OPERATOR documented as of this encounter Care Teams Adjunct Mathematics Instructor Relationship Specialty Start Date End Date Ronen Macias MD [address] [address] PCP - General Family Practice 03/01/17 documented as of this encounter
--- OUTSIDE RECORDS SUMMARY | 2025-04-28 05:13 | XMS_ITS | Encounter Summary ---
Author Organization [facility] Address [address] [place] [address] Care Team Providers Care Csw Name Role Phone Ronen Macias MD Primary Care Provider [phone] -[phone] Reason for Visit * Reason Comments Medication Refill Encounter Details Date Type Department Care Team (Late st Contact Info) Description 11/15/2020 [facility]ill [facility] [address] [facility] [address] [place] [phone] Gio Watkins MD NO ADDRESS ON FILE Social History Tobacco Use Types Packs/Day Years Used Date Smoking Tobacco: Former Cigarettes 2 40 0 [birth year]07/1945 - 06/07/1986 Smokeless Tobacco: Never Alcohol Use Standard Drinks/Week Comments Yes 1 (1 standard drink = 0.6 oz pur e alcohol) occ Sex and Gender Information Value Date Recorded Sex Assigned at Not on file Legal Sex Male 6:13 AM BIOMEDICAL EQUIPMENT SPECIALIST Gender Identity Not on file Sexual Orientation Not on file documented as of this encounter Plan of Treatment Not on file documented as of this encounter Visit Diagnoses Not on filedocumented in this encounter Care Teams Csw Relationship Specialty Start Date End Date Ronen Macias MD [address] [facility] [address] [place] [address] PCP - General Family Practice 03/01/17 documented as of this encounter
--- OUTSIDE RECORDS SUMMARY | 2025-04-28 05:13 | XMS_ITS | Encounter Summary ---
Author Organization [facility] Address [address] [place] [address] Care Team Providers Care Hand Shoe Cutter Name Role Phone Ronen Macias MD Primary Care Provider [phone] [phone] Encounter Details Date Type Department Care Team (Latest Contact Info) Description 03/24/2006 Outpatient Historical [facility] Family Medicine [address] [phone] Ananda Beckwith DO NO ADDRESS ON FILE Vaccine for influenza (Primary Dx) Social History Tobacco Use Types Packs/Day Years Used Date Smoking Tobacco: Never Assessed Sex and Gender Information Value Date Recorded Sex Assigned at Not on file Legal Sex Male 6:13 AM PATIENT FINANCIAL SPECIALIST Gender Identity Not on file Sexual Orientation Not on file documented as of this encounter Plan of Treatment Not on file documented as of this encounter Visit Diagnoses Diagnosis Vaccine for influenza- Primary Need for prophylactic vaccination and inoculation against influenza documented in this encounter Additional Health Concerns Infection Onset Date Last Indicated Resolved Time R/O COVID-19 05/01/2020 05/01/2020 05/01/2020 6:25 AM PATIENT FINANCIAL SPECIALIST documented as of this encounter Care Teams Hand Shoe Cutter Relationship Specialty Start Date End Date Ronen Macias MD [address] [phone] PCP - General Family Practice 03/01/17 documented as of this encounter
--- OUTSIDE RECORDS SUMMARY | 2025-04-28 05:13 | XMS_ITS | Encounter Summary ---
Author Organization [facility] Address [address] [place] [address] Care Team Providers Care Manager Gift Name Role Phone Ronen Macias MD Primary Care Provider +1 [phone] Encounter Details Date Type Department Care Team (Latest Contact Info) Description 06/29/2001 Outpatient Historical [facility] Family Medicine [address] [phone] Ananda Beckwith DO NO ADDRESS ON FILE SCREENING MAL NEOP-RECTUM (Primary Dx) Social History Tobacco Use Types Packs/Day Years Used Date Smoking Tobacco: Never Assessed Sex and Gender Information Value Date Recorded Sex Assigned at Not on file Legal Sex Male 6:13 AM RUG SETTER AXMINSTER Gender Identity Not on file Sexual Orientation Not on file documented as of this encounter Plan of Treatment Not on file documented as of this encounter Visit Diagnoses Diagnosis Screening for malignant neoplasm of the rectum- Primary documented in this encounter Additional Health Concerns Infection Onset Date Last Indicated Resolved Time R/O COVID-19 05/01/2020 05/01/2020 05/01/2020 6:25 AM RUG SETTER AXMINSTER documented as of this encounter Care Teams Manager Gift Relationship Specialty Start Date End Date Ronen Macias MD [address] [facility] [address] [place] [phone] PCP - General Family Practice 03/01/17 documented as of this encounter
--- OUTSIDE RECORDS SUMMARY | 2025-04-28 05:13 | XMS_ITS | Encounter Summary ---
Author Organization [facility] Address [address] [place] [address] Care Team Providers Care Equipment Coordinator Name Role Phone Ronen Macias MD Primary Care Provider [phone] [phone] Encounter Details Date Type Department Care Team (Latest Contact Info) Description 03/17/2004 Outpatient Historical [facility] Family Medicine [address] [phone] Ananda Beckwith DO NO ADDRESS ON FILE Vaccine for influenza (Primary Dx) Social History Tobacco Use Types Packs/Day Years Used Date Smoking Tobacco: Never Assessed Sex and Gender Information Value Date Recorded Sex Assigned at Not on file Legal Sex Male 6:13 AM MANAGER AUDIO Gender Identity Not on file Sexual Orientation Not on file documented as of this encounter Plan of Treatment Not on file documented as of this encounter Visit Diagnoses Diagnosis Vaccine for influenza- Primary Need for prophylactic vaccination and inoculation against influenza documented in this encounter Additional Health Concerns Infection Onset Date Last Indicated Resolved Time R/O COVID-19 05/01/2020 05/01/2020 05/01/2020 6:25 AM MANAGER AUDIO documented as of this encounter Care Teams Equipment Coordinator Relationship Specialty Start Date End Date Ronen Macias MD [address] [phone] PCP - General Family Practice 03/01/17 documented as of this encounter
--- OUTSIDE RECORDS SUMMARY | 2025-04-28 05:13 | XMS_ITS | Encounter Summary ---
Author Organization [facility] Address [address] [place] [address] Care Team Providers Care Fiberglass Dowel Drawing Operator Name Role Phone Ronen Macias MD Primary Care Provider [phone] [phone] Encounter Details Date Type Department Care Team (Latest Contact Info) Description 04/22/2007 Outpatient Historical [facility] Cardiac Thoracic Vascular [place] [place] [address] [place] [address] Nate Lockwood MD NO ADDRESS ON FILE Coronary Atherosclerosis of [place] Coronary Artery (Primary Dx) Social History Tobacco Use Types Packs/Day Years Used Date Smoking Tobacco: Never Assessed Sex and Gender Information Value Date Recorded Sex Assigned at Not on file Legal Sex Male 6:13 AM RN OSTOMY Gender Identity Not on file Sexual Orientation Not on file documented as of this encounter Plan of Treatment Not on file documented as of this encounter Visit Diagnoses Diagnosis Coronary atherosclerosis of [place] coronary artery- Primary documented in this encounter Additional Health Concerns Infection Onset Date Last Indicated Resolved Time R/O COVID-19 05/01/2020 05/01/2020 05/01/2020 6:25 AM RN OSTOMY documented as of this encounter Care Teams Fiberglass Dowel Drawing Operator Relationship Specialty Start Date End Date Ronen Macias MD [address] [facility] [address] [place] [address] PCP - General Family Practice 03/01/17 documented as of this encounter
--- OUTSIDE RECORDS SUMMARY | 2025-04-28 05:13 | XMS_ITS | Encounter Summary ---
Author Organization [facility] Address [address] [place] [address] Care Team Providers Care Firewall Security Engineer Name Role Phone Ronen Macias MD Primary Care Provider +1 [phone] Encounter Details Date Type Department Care Team (Late st Contact Info) Description 12/11/2002 Outpatient Historical [facility] Family Medicine [address] [address] Emanuel Claudio MD [address] [address] Social History Tobacco Use Types Packs/Day Years Used Date Smoking Tobacco: Never Assessed Sex and Gender Information Value Date Recorded Sex Assigned at Not on file Legal Sex Male 6:13 AM COACH PROFESSIONAL ATHLETES Gender Identity Not on file Sexual Orientation Not on file documented as of this encounter Plan of Treatment Not on file documented as of this encounter Visit Diagnoses Not on filedocumented in this encounter Additional Health Concerns Infection Onset Date Last Indicated Resolved Time R/O COVID-19 05/01/2020 05/01/2020 05/01/2020 6:25 AM COACH PROFESSIONAL ATHLETES documented as of this encounter Care Teams Firewall Security Engineer Relationship Specialty Start Date End Date Ronen Macias MD [address] [address] PCP - General Family Practice 03/01/17 documented as of this encounter
--- OUTSIDE RECORDS SUMMARY | 2025-04-28 05:13 | XMS_ITS | Encounter Summary ---
Author Organization [facility] Address [address] [place] [address] Care Team Providers Care Xerox Machine Operator Name Role Phone Ronen Macias MD Primary Care Provider [phone] [phone] Encounter Details Date Type Department Care Team (Latest Contact Info) Description 01/18/2004 Outpatient Historical [facility] Family Medicine [place] [address] [address] Emanuel Claudio MD [address] [address] Routine medical exam (Primary Dx) Social History Tobacco Use Types Packs/Day Years Used Date Smoking Tobacco: Never Assessed Sex and Gender Information Value Date Recorded Sex Assigned at Not on file Legal Sex Male 6:13 AM AGRONOMY LOCATION MANAGER Gender Identity Not on file Sexual Orientation Not on file documented as of this encounter Plan of Treatment Not on file documented as of this encounter Visit Diagnoses Diagnosis Routine medical exam- Primary Routine general medical examination at a health care facility documented in this encounter Additional Health Concerns Infection Onset Date Last Indicated Resolved Time R/O COVID-19 05/01/2020 05/01/2020 05/01/2020 6:25 AM AGRONOMY LOCATION MANAGER documented as of this encounter Care Teams Xerox Machine Operator Relationship Specialty Start Date End Date Ronen Macias MD [address] [phone] PCP - General Family Practice 03/01/17 documented as of this encounter
--- OUTSIDE RECORDS SUMMARY | 2025-04-28 05:13 | XMS_ITS | Encounter Summary ---
Author Organization [facility] Address [address] [place] [address] Care Team Providers Care Interior Design Program Chair Name Role Phone Ronen Macias MD Primary Care Provider +1 [phone] Encounter Details Date Type Department Care Team (Latest Contact Info) Description 06/19/2003 Outpatient Historical [facility] Medicine- [address] [phone] Emanuel Claudio MD [address] [address] DISC DIS NEC/NOS-LUMBAR (Primary Dx); SCIATICA Social History Tobacco Use Types Packs/Day Years Used Date Smoking Tobacco: Never Assessed Sex and Gender Information Value Date Recorded Sex Assigned at Not on file Legal Sex Male 6:13 AM CASH APPLICATIONS COORDINATOR Gender Identity Not on file Sexual Orientation Not on file documented as of this encounter Plan of Treatment Not on file documented as of this encounter Visit Diagnoses Diagnosis Other and unspecified disc disorder of lumbar region- Primary Sciatica documented in this encounter Additional Health Concerns Infection Onset Date Last Indicated Resolved Time R/O COVID-19 05/01/2020 05/01/2020 05/01/2020 6:25 AM CASH APPLICATIONS COORDINATOR documented as of this encounter Care Teams Interior Design Program Chair Relationship Specialty Start Date End Date Ronen Macias MD [address] [facility] [address] [place] [phone] PCP - General Family Practice 03/01/17 documented as of this encounter
--- OUTSIDE RECORDS SUMMARY | 2025-04-28 05:13 | XMS_ITS | Encounter Summary ---
Author Organization [facility] Address [address] [place] [address] Care Team Providers Care Cut Tobacco Bulker Name Role Phone Ronen Macias MD Primary Care Provider [phone] [phone] Encounter Details Date Type Department Care Team (Latest Contact Info) Description 12/11/2002 Outpatient Historical [facility] Family Medicine [address] [address] Emanuel Claudio MD [address] [address] HYPERTENSION NOS (Primary Dx); OSTEOARTHROS NOS-UNSPEC; SCREENING MAL NEOP-PROSTATE Social History Tobacco Use Types Packs/Day Years Used Date Smoking Tobacco: Never Assessed Sex and Gender Information Value Date Recorded Sex Assigned at Not on file Legal Sex Male 6:13 AM DRAPERY COUNSELOR Gender Identity Not on file Sexual Orientation Not on file documented as of this encounter Plan of Treatment Not on file documented as of this encounter Visit Diagnoses Diagnosis Unspecified essential hypertension- Primary Osteoarthrosis, unspecified whether generalized or localized, unspecified site Special screening for malignant neoplasm of prostate documented in this encounter Additional Health Concerns Infection Onset Date Last Indicated Resolved Time R/O COVID-19 05/01/2020 05/01/2020 05/01/2020 6:25 AM DRAPERY COUNSELOR documented as of this encounter Care Teams Cut Tobacco Bulker Relationship Specialty Start Date End Date Ronen Macias MD [address] [address] PCP - General Family Practice 03/01/17 documented as of this encounter
--- OUTSIDE RECORDS SUMMARY | 2025-04-28 05:13 | XMS_ITS | Encounter Summary ---
Author Organization [facility] Address [address] [place] [address] Care Team Providers Care Attendant Child Activity Name Role Phone Ronen Macias MD Primary Care Provider [phone] [phone] Encounter Details Date Type Department Care Team (Latest Contact Info) Description 07/13/2003 Outpatient Historical [facility] Family Medicine [place] [address] [phone] Emanuel Claudio MD [address] [address] LUMB/LUMBOSAC DISC DEGEN (Primary Dx) Social History Tobacco Use Types Packs/Day Years Used Date Smoking Tobacco: Never Assessed Sex and Gender Information Value Date Recorded Sex Assigned at Not on file Legal Sex Male 6:13 AM AUTOBODY TECHNICIAN Gender Identity Not on file Sexual Orientation Not on file documented as of this encounter Plan of Treatment Not on file documented as of this encounter Visit Diagnoses Diagnosis Degeneration of lumbar or lumbosacral intervertebral disc- Primary documented in this encounter Additional Health Concerns Infection Onset Date Last Indicated Resolved Time R/O COVID-19 05/01/2020 05/01/2020 05/01/2020 6:25 AM AUTOBODY TECHNICIAN documented as of this encounter Care Teams Attendant Child Activity Relationship Specialty Start Date End Date Ronen Macias MD [address] [phone] PCP - General Family Practice 03/01/17 documented as of this encounter
--- OUTSIDE RECORDS SUMMARY | 2025-04-28 05:13 | XMS_ITS | Encounter Summary ---
Author Organization [facility] Address [address] [place] [address] Care Team Providers Care Analytical Manager Name Role Phone Ronen Macias MD Primary Care Provider [phone] [phone] Encounter Details Date Type Department Care Team (Late st Contact Info) Description 04/22/2007 Outpatient Historical [facility] Social History Tobacco Use Types Packs/Day Years Used Date Smoking Tobacco: Never Assessed Sex and Gender Information Value Date Recorded Sex Assigned at Not on file Legal Sex Male 6:13 AM PRIMARY CARE PEDIATRICIAN Gender Identity Not on file Sexual Orientation Not on file documented as of this encounter Plan of Treatment Not on file documented as of this encounter Visit Diagnoses Not on filedocumented in this encounter Additional Health Concerns Infection Onset Date Last Indicated Resolved Time R/O COVID-19 05/01/2020 05/01/2020 05/01/2020 6:25 AM PRIMARY CARE PEDIATRICIAN documented as of this encounter Care Teams Analytical Manager Relationship Specialty Start Date End Date Ronen Macias MD [address] [facility] [address] [place] [address] PCP - General Family Practice 03/01/17 documented as of this encounter
--- OUTSIDE RECORDS SUMMARY | 2025-04-28 05:13 | XMS_ITS | Encounter Summary ---
Author Organization [facility] Address [address] [place] [address] Care Team Providers Care Public Welfare Worker Name Role Phone Ronen Macias MD Primary Care Provider [phone] [phone] Encounter Details Date Type Department Care Team (Latest Contact Info) Description 02/24/2000 Outpatient Historical [facility] Family Medicine [address] [address] Emanuel Claudio MD [address] [address] Routine medical exam (Primary Dx); Screening for malignant neoplasm of the rectum Social History Tobacco Use Types Packs/Day Years Used Date Smoking Tobacco: Never Assessed Sex and Gender Information Value Date Recorded Sex Assigned at Not on file Legal Sex Male 6:13 AM CULLET TRUCKER Gender Identity Not on file Sexual Orientation [...] R/O COVID-19 05/01/2020 05/01/2020 05/01/2020 6:25 AM CULLET TRUCKER documented as of this encounter Care Teams Public Welfare Worker Relationship Specialty Start Date End Date Ronen Macias MD [address] [address] PCP - General Family Practice 03/01/17 documented as of this encounter
--- OUTSIDE RECORDS SUMMARY | 2025-04-28 05:13 | XMS_ITS | Encounter Summary ---
Author Organization [facility] Address [address] [place] [address] Care Team Providers Care Geotechnical Department Manager Name Role Phone Ronen Macias MD Primary Care Provider [phone] [phone] Encounter Details Date Type Department Care Team (Latest Contact Info) Description 05/24/1998 Outpatient Historical [facility] Family Medicine [address] [address] Emanuel Claudio MD [address] [address] Sebaceous cyst (Primary Dx); Other specified disorder of male genital organs(608.89) Social History Tobacco Use Types Packs/Day Years Used Date Smoking Tobacco: Never Assessed Sex and Gender Information Value Date Recorded Sex Assigned at Not on file Legal Sex Male 6:13 AM CREATIVE WRITING TEACHER Gender Identity Not on file Sexual Orientation Not on file documented as of this encounter Plan of Treatment Not on file documented as of this encounter Visit Diagnoses Diagnosis Sebaceous cyst- Primary Other specified disorder of male genital organs(608.89) Other specified disorder of male genital organs documented in this encounter Additional Health Concerns Infection Onset Date Last Indicated Resolved Time R/O COVID-19 05/01/2020 05/01/2020 05/01/2020 6:25 AM CREATIVE WRITING TEACHER documented as of this encounter Care Teams Geotechnical Department Manager Relationship Specialty Start Date End Date Ronen Macias MD [address] [phone] PCP - General Family Practice 03/01/17 documented as of this encounter
--- OUTSIDE RECORDS SUMMARY | 2025-04-28 05:13 | XMS_ITS | Encounter Summary ---
Author Organization [facility] Address [address] [place] [address] Care Team Providers Care Sponsorship Coordinator Name Role Phone Ronen Macias MD Primary Care Provider [phone] [phone] Encounter Details Date Type Department Care Team (Latest Contact Info) Description 06/22/2001 Outpatient Historical [facility] Family Medicine [address] [address] Emanuel Claudio MD [address] [address] Routine medical exam (Primary Dx); SCREENING-LIPOID DISORDERS; SCREENING MAL NEOP-PROSTATE Social History Tobacco Use Types Packs/Day Years Used Date Smoking Tobacco: Never Assessed Sex and Gender Information Value Date Recorded Sex Assigned at Not on file Legal Sex Male 6:13 AM DIP TUBE ASSEMBLER MACHINE Gender Identity Not on file Sexual Orientation Not on file documented as of this encounter Plan of Treatment Not on file documented as of this encounter Visit Diagnoses Diagnosis Routine medical exam- Primary Routine general medical examination at a health care facility Screening for lipoid disorders Special screening for malignant neoplasm of prostate documented in this encounter Additional Health Concerns Infection Onset Date Last Indicated Resolved Time R/O COVID-19 05/01/2020 05/01/2020 05/01/2020 6:25 AM DIP TUBE ASSEMBLER MACHINE documented as of this encounter Care Teams Sponsorship Coordinator Relationship Specialty Start Date End Date Ronen Macias MD [address] [phone] PCP - General Family Practice 03/01/17 documented as of this encounter
--- OUTSIDE RECORDS SUMMARY | 2025-04-28 05:13 | XMS_ITS | Encounter Summary ---
Author Organization [facility] Address [address] [place] [address] Care Team Providers Care Rental Clerk Tool And Equipment Name Role Phone Ronen Macias MD Primary Care Provider [phone] [phone] Encounter Details Date Type Department Care Team (Late st Contact Info) Description 03/24/2007 Outpatient Historical [facility] Family Medicine [address] [phone] Social History Tobacco Use Types Packs/Day Years Used Date Smoking Tobacco: Never Assessed Sex and Gender Information Value Date Recorded Sex Assigned at Not on file Legal Sex Male 6:13 AM MYCOLOGY TEACHER Gender Identity Not on file Sexual Orientation Not on file documented as of this encounter Plan of Treatment Not on file documented as of this encounter Visit Diagnoses Not on filedocumented in this encounter Additional Health Concerns Infection Onset Date Last Indicated Resolved Time R/O COVID-19 05/01/2020 05/01/2020 05/01/2020 6:25 AM MYCOLOGY TEACHER documented as of this encounter Care Teams Rental Clerk Tool And Equipment Relationship Specialty Start Date End Date Ronen Macias MD [address] [phone] PCP - General Family Practice 03/01/17 documented as of this encounter
--- OUTSIDE RECORDS SUMMARY | 2025-04-28 05:13 | XMS_ITS | Encounter Summary ---
Author Organization [facility] Address [address] [place] [address] Care Team Providers Care Senior Project Coordinator Name Role Phone Ronen Macias MD Primary Care Provider [phone] [phone] Encounter Details Date Type Department Care Team (Latest Contact Info) Description 04/13/2005 Outpatient Historical [facility] Family Medicine [place] [address] [address] Emanuel Claudio MD [address] [address] Routine medical exam (Primary Dx) Social History Tobacco Use Types Packs/Day Years Used Date Smoking Tobacco: Never Assessed Sex and Gender Information Value Date Recorded Sex Assigned at Not on file Legal Sex Male 6:13 AM STUDIO CONTROL OPERATOR Gender Identity Not on file Sexual [...] R/O COVID-19 05/01/2020 05/01/2020 05/01/2020 6:25 AM STUDIO CONTROL OPERATOR documented as of this encounter Care Teams Senior Project Coordinator Relationship Specialty Start Date End Date Ronen Macias MD [address] [phone] PCP - General Family Practice 03/01/17 documented as of this encounter
--- OUTSIDE RECORDS SUMMARY | 2025-04-28 05:13 | XMS_ITS | Encounter Summary ---
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) Social History Tobacco Use Types Packs/Day Years Used Date Smoking Tobacco: Never Assessed Sex and Gender Information Value Date Recorded Sex Assigned at Not on file 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 Gender Identity Not on file Sexual Orientation Not on file documented as of this encounter Plan of Treatment Not on file documented as of this encounter Procedures Procedure Name Priority Date/Time Associated Diagnosis Comments POC GLUCOSE Routine 04/05/2007 12:04 PM CDT POC GLUCOSE Routine 04/05/2007 6:34 AM CDT CBC WITH DIFFERENTIAL Routine 04/05/2007 4:50 AM CDT MAGNESIUM LEVEL Routine 04/05/2007 4:50 AM CDT BASIC METABOLIC PANEL Routine 04/05/2007 4:50 AM CDT POC GLUCOSE Routine 04/04/2007 9:49 PM CDT POC GLUCOSE Routine 04/04/2007 5:59 PM CDT POC GLUCOSE Routine 04/04/2007 12:01 PM CDT POC GLUCOSE Routine 04/04/2007 7:09 AM CDT POC GLUCOSE Routine 04/03/2007 9:40 PM CDT POC GLUCOSE Routine 04/03/2007 5:26 PM CDT POC GLUCOSE Routine 04/03/2007 11:47 AM CDT CBC WITH DIFFERENTIAL Routine 04/03/2007 7:19 AM CDT BASIC METABOLIC PANEL Routine 04/03/2007 7:19 AM CDT POC GLUCOSE Routine 04/03/2007 7:00 AM CDT POC GLUCOSE Routine 04/02/2007 10:41 PM CDT POC GLUCOSE Routine 04/02/2007 5:51 PM CDT URINALYSIS MICROSCOPY ONLY Routine 04/02/2007 1:48 PM CDT URINALYSIS W/REFLEX MICROSCOPIC Routine 04/02/2007 1:48 PM CDT POC GLUCOSE Routine 04/02/2007 11:39 AM CDT POC GLUCOSE Routine 04/02/2007 7:20 AM CDT CBC WITH DIFFERENTIAL Routine 04/02/2007 5:26 AM CDT BASIC METABOLIC PANEL Routine 04/02/2007 5:26 AM CDT POC GLUCOSE Routine 04/01/2007 9:41 PM CDT POC GLUCOSE Routine 04/01/2007 5:47 PM CDT POC GLUCOSE Routine 04/01/2007 11:44 AM CDT POC GLUCOSE Routine 04/01/2007 7:08 AM CDT POC BLOOD GAS, LYTES AND H+H Routine 04/01/2007 5:29 AM CDT POC GLUCOSE Routine 04/01/2007 5:14 AM CDT POC GLUCOSE Routine 04/01/2007 4:00 AM CDT CBC WITH DIFFERENTIAL Routine 04/01/2007 3:13 AM CDT BASIC METABOLIC PANEL Routine 04/01/2007 3:13 AM CDT POC GLUCOSE Routine 04/01/2007 2:57 AM CDT POC GLUCOSE Routine 04/01/2007 1:50 AM CDT POC GLUCOSE Routine 04/01/2007 12:20 AM CDT POC GLUCOSE Routine 03/31/2007 11:39 PM CDT POC GLUCOSE Routine 03/31/2007 10:26 PM CDT POC GLUCOSE Routine 03/31/2007 9:26 PM CDT POC BLOOD GAS, LYTES AND H+H Routine 03/31/2007 8:17 PM CDT POC GLUCOSE Routine 03/31/2007 8:17 PM CDT POC GLUCOSE Routine 03/31/2007 7:35 PM CDT POC BLOOD GAS, LYTES AND H+H Routine 03/31/2007 6:39 PM CDT POC GLUCOSE Routine 03/31/2007 6:01 PM CDT POC GLUCOSE Routine 03/31/2007 4:52 PM CDT POC GLUCOSE Routine 03/31/2007 4:11 PM CDT POC BLOOD GAS, LYTES AND H+H Routine 03/31/2007 2:51 PM CDT POC GLUCOSE Routine 03/31/2007 2:26 PM CDT PT AND APTT Routine 03/31/2007 1:32 PM CDT CBC WITHOUT DIFFERENTIAL Routine 03/31/2007 1:32 PM CDT LIPID PANEL Routine 03/29/2007 6:40 AM CDT PT AND APTT Routine 03/28/2007 11:14 AM CDT CBC WITHOUT DIFFERENTIAL Routine 03/28/2007 11:14 AM CDT BASIC METABOLIC PANEL Routine 03/28/2007 11:14 AM CDT documented in this encounter Results * (ABNORMAL) POC GLUCOSE (04/05/2007 12:04 PM CDT) GLUCOSE POC 154(H) 60 - 100 mg/dL INTERFACE SYSTEM COMMENT POC Notify R.N INTERFA CE SYSTEM 04/05/2007 12:0 4 PM CDT us Trell Omalley MD POINT OF CARE TESTING Edited INTERFACE SYSTEM Refer to clinic/hospital department * (ABNORMAL) POC GLUCOSE (04/05/2007 6:34 AM CDT) GLUCOSE POC 142(H) 60 - 100 mg/dL INTERFACE SYSTEM COMMENT POC Notify R.N INTERFA CE SYSTEM 04/05/2007 6:34 AM CDT us Trell Omalley MD POINT OF CARE TESTING Edited INTERFACE SYSTEM Refer to clinic/hospital department * (ABNORMAL) CBC WITH DIFFERENTIAL (04/05/2007 4:50 AM CDT) WBC 10.6 4.8 - 10.8 K/ul INTERFACE SYSTEM RBC 3.37(L) 4.60 - 6.20 Mil/ul INTERFACE SYSTEM HEMOGLOBIN 10.3(L) 14.0 - 18.0 g/dL INTERFACE SYSTEM HEMATOCRIT 30.4(L) 41.0 - 53.0 % INTERFACE SYSTEM MCV 90.2 84.0 - 103.0 Fl INTERFACE SYSTEM MCH 30.6 27.0 - 34.0 pg INTERFACE SYSTEM MCHC 33.9 30.0 - 35.0 g/dL INTERFACE SYSTEM RDW 14.3 11.0 - 14.5 % INTERFACE SYSTEM PLATELETS 241 140 - 440 K/ul INTERFACE SYSTEM MPV 11.1 8.9 - 12.8 Fl INTERFACE SYSTEM NEUTROPHILS 72.4 42.2 - 75.2 % INTERFACE SYSTEM LYMPHOCYTES 13.7(L) 24.0 - 44.0 % INTERFACE SYSTEM MONOCYTES 13.2(H) 2.0 - 10.0 % INTERFACE SYSTEM EOSINOPHILS 0.5 0.0 - 7.0 % INTERFACE SYSTEM BASOPHILS 0.2 0.0 - 1.0 % INTERFACE SYSTEM NEUTROPHIL ABSOLUTE 7.6 2.0 - 8.0 K/ul INTERFACE SYSTEM LYMPHOCYTE ABSOLUTE 1.5 1.2 - 4.0 K/ul INTERFACE SYSTEM MONOCYTE ABSOLUTE 1.4(H) 0.1 - 0.6 K/ul INTERFACE SYSTEM EOSINOPHIL ABSOLUTE 0.1 0.0 - 0.7 K/ul INTERFACE SYSTEM BASOPHILS ABSOLUTE 0.0 0.0 - 0.2 K/ul INTERFACE SYSTEM 04/05/2007 4:50 AM CDT Trell Omalley MD HEMATOLOGY ORDERABLES Edited INTERFACE SYSTEM Refer to clinic/hospital department * MAGNESIUM LEVEL (04/05/2007 4:50 AM CDT) MAGNESIUM 2.4 1.7 - 2.4 mg/dL INTERFACE SYSTEM 04/05/2007 4:50 AM CDT Trell Omalley MD CHEMISTRY ORDERABLES Edited Performing Organization Address [facility] Phone Number INTERFACE SYSTEM Refer to clinic/hospital department * (ABNORMAL) BASIC METABOLIC PANEL (04/05/2007 4:50 AM CDT) GLUCOSE 108 70 - 110 mg/dL INTERFACE SYSTEM BUN 21(H) 9 - 20 mg/dL INTERFACE SYSTEM CREATININE 1.1 0.7 - 1.5 mg/dL INTERFACE SYSTEM SODIUM 139 136 - 145 mEq/L INTERFACE SYSTEM POTASSIUM 3.6 3.5 - 5.0 mEq/L INTERFACE SYSTEM CHLORIDE 98 95 - 110 mEq/L INTERFACE SYSTEM CO2 35(H) 22 - 32 mmol/l INTERFACE SYSTEM CALCIUM 8.8 8.4 - 10.5 mg/dL INTERFACE SYSTEM ANION GAP 10 9 - 20 mEq/L INTERFACE SYSTEM OSMOLALITY, CALCULATED 289 275 - 295 mOsm/Kg INTERFACE SYSTEM 04/05/2007 4:50 AM CDT Terll Omalley MD CHEMISTRY ORDERABLES Edited Performing Organization Address [facility] Phone Number INTERFACE SYSTEM Refer to clinic/hospital department * (ABNORMAL) POC GLUCOSE (04/04/2007 9:49 PM CDT) GLUCOSE POC 134(H) 60 - 100 mg/dL INTERFACE SYSTEM 04/04/2007 9:49 PM CDT Trell Omalley MD POINT OF CARE TESTING Edited Performing Organization Address City/[facility] [place] Phone Number INTERFACE SYSTEM Refer to clinic/hospital department * (ABNORMAL) POC GLUCOSE (04/04/2007 5:59 PM CDT) GLUCOSE POC 128(H) 60 - 100 mg/dL INTERFACE SYSTEM 04/04/2007 5:59 PM CDT Trell Omalley MD POINT OF CARE TESTING Edited INTERFACE SYSTEM Refer to clinic/hospital department * (ABNORMAL) POC GLUCOSE (04/04/2007 12:01 PM CDT) GLUCOSE POC 118(H) 60 - 100 mg/dL INTERFACE SYSTEM 04/04/2007 12:0 1 PM CDT us Trell Omalley MD POINT OF CARE TESTING Edited Performing Organization Address City/State/[facility] Co de Phone Number INTERFACE SYSTEM Refer to clinic/hospital department * (ABNORMAL) POC GLUCOSE (04/04/2007 7:09 AM CDT) GLUCOSE POC 127(H) 60 - 100 mg/dL INTERFACE SYSTEM COMMENT POC Notify R.N INTERFA CE SYSTEM 04/04/2007 7:09 AM CDT us Trell Omalley MD POINT OF CARE TESTING Edited Performing Organization Address City/[facility] Co de Phone Number INTERFACE SYSTEM Refer to clinic/hospital department * (ABNORMAL) POC GLUCOSE (04/03/2007 9:40 PM CDT) GLUCOSE POC 154(H) 60 - 100 mg/dL INTERFACE SYSTEM 04/03/2007 9:40 PM CDT Trell Omalley MD POINT OF CARE TESTING Edited Performing Organization Address City/State/[facility] Co de Phone Number INTERFACE SYSTEM Refer to clinic/hospital department * (ABNORMAL) POC GLUCOSE (04/03/2007 5:26 PM CDT) GLUCOSE POC 120(H) 60 - 100 mg/dL INTERFACE SYSTEM 04/03/2007 5:26 PM CDT Trell Omalley MD POINT OF CARE TESTING Edited INTERFACE SYSTEM Refer to clinic/hospital department * (ABNORMAL) POC GLUCOSE (04/03/2007 11:47 AM CDT) GLUCOSE POC 128(H) 60 - 100 mg/dL INTERFACE SYSTEM 04/03/2007 11:4 7 AM CDT us Trell Omalley MD POINT OF CARE TESTING Edited INTERFACE SYSTEM Refer to clinic/hospital department * (ABNORMAL) CBC WITH DIFFERENTIAL (04/03/2007 7:19 AM CDT) WBC 15.4(H) 4.8 - 10.8 K/ul INTERFACE SYSTEM RBC 3.22(L) 4.60 - 6.20 Mil/ul INTERFACE SYSTEM HEMOGLOBIN 9.8(L) 14.0 - 18.0 g/dL INTERFACE SYSTEM HEMATOCRIT 29.5(L) 41.0 - 53.0 % INTERFACE SYSTEM MCV 91.6 84.0 - 103.0 Fl INTERFACE SYSTEM MCH 30.4 27.0 - 34.0 pg INTERFACE SYSTEM MCHC 33.2 30.0 - 35.0 g/dL INTERFACE SYSTEM RDW 14.5 11.0 - 14.5 % INTERFACE SYSTEM PLATELETS 134(L) 140 - 440 K/ul INTERFACE SYSTEM MPV 12.4 8.9 - 12.8 Fl INTERFACE SYSTEM NEUTROPHILS 81.0(H) 42.2 - 75.2 % INTERFACE SYSTEM LYMPHOCYTES 8.2(L) 24.0 - 44.0 % INTERFACE SYSTEM MONOCYTES 10.6(H) 2.0 - 10.0 % INTERFACE SYSTEM EOSINOPHILS 0.1 0.0 - 7.0 % INTERFACE SYSTEM BASOPHILS 0.1 0.0 - 1.0 % INTERFACE SYSTEM NEUTROPHIL ABSOLUTE 12.5(H) 2.0 - 8.0 K/ul INTERFACE SYSTEM LYMPHOCYTE ABSOLUTE 1.3 1.2 - 4.0 K/ul INTERFACE SYSTEM MONOCYTE ABSOLUTE 1.6(H) 0.1 - 0.6 K/ul INTERFACE SYSTEM EOSINOPHIL ABSOLUTE 0.0 0.0 - 0.7 K/ul INTERFACE SYSTEM BASOPHILS ABSOLUTE 0.0 0.0 - 0.2 K/ul INTERFACE SYSTEM 04/03/2007 7:19 AM CDT us Donte Dao PA-C HEMATOLOGY ORDERABLES Edit ed Performing Organization Address [facility] de Phone Number INTERFACE SYSTEM Refer to clinic/hospital department * (ABNORMAL) BASIC METABOLIC PANEL (04/03/2007 7:19 AM CDT) GLUCOSE 121(H) 70 - 110 mg/dL INTERFACE SYSTEM BUN 23(H) 9 - 20 mg/dL INTERFACE SYSTEM CREATININE 1.0 0.7 - 1.5 mg/dL INTERFACE SYSTEM SODIUM 138 136 - 145 mEq/L INTERFACE SYSTEM POTASSIUM 4.0 3.5 - 5.0 mEq/L INTERFACE SYSTEM CHLORIDE 94(L) 95 - 110 mEq/L INTERFACE SYSTEM CO2 35(H) 22 - 32 mmol/l INTERFACE SYSTEM CALCIUM 8.8 8.4 - 10.5 mg/dL INTERFACE SYSTEM ANION GAP 13 9 - 20 mEq/L INTERFACE SYSTEM OSMOLALITY, CALCULATED 289 275 - 295 mOsm/Kg INTERFACE SYSTEM 04/03/2007 7:19 AM CDT Donte Dao PA-C CHEMISTRY ORDERABLES Edite d Performing Organization Address [facility] Phone Number INTERFACE SYSTEM Refer to clinic/hospital department * (ABNORMAL) POC GLUCOSE (04/03/2007 7:00 AM CDT) GLUCOSE POC 144(H) 60 - 100 mg/dL INTERFACE SYSTEM COMMENT POC Notify R.N INTERFA CE SYSTEM 04/03/2007 7:00 AM CDT Trell Omalley MD POINT OF CARE TESTING Edited Performing Organization Address [facility] de Phone Number INTERFACE SYSTEM Refer to clinic/hospital department * (ABNORMAL) POC GLUCOSE (04/02/2007 10:41 PM CDT) GLUCOSE POC 158(H) 60 - 100 mg/dL INTERFACE SYSTEM 04/02/2007 10:4 1 PM CDT Trell Omalley MD POINT OF CARE TESTING Edited Performing Organization Address City/[facility]/ZIP Co de Phone Number INTERFACE SYSTEM Refer to clinic/hospital department * (ABNORMAL) POC GLUCOSE (04/02/2007 5:51 PM CDT) GLUCOSE POC 108(H) 60 - 100 mg/dL INTERFACE SYSTEM 04/02/2007 5:51 PM CDT Trell Omalley MD POINT OF CARE TESTING Edited Performing Organization Address [facility] Phone Number INTERFACE SYSTEM Refer to clinic/hospital department * (ABNORMAL) URINALYSIS MICROSCOPY ONLY (04/02/2007 1:48 PM CDT) WBC URINE 3-5(A) 0 - 2 INTERFACE SYSTEM RBC UA 16-25(A) 0 - 2 INTERFACE SYSTEM HYALINE CAST 0-2 0 - 2 INTERFA CE SYSTEM BACTERIA UA None Seen None Seen INTERFAC E SYSTEM 04/02/2007 1:48 PM CDT Donte Dao PA-C URINE ORDERABLES Edited Performing Organization Address [facility] Phone Number INTERFACE SYSTEM Refer to clinic/hospital department * (ABNORMAL) URINALYSIS (04/02/2007 1:48 PM CDT) COLOR UA Yellow Straw INTERFACE SYSTEM CLARITY UA Clear Clear INTERFACE SYSTEM LEUKOCYTE ESTERASE UA NEGATIVE NEGATIVE INTERFACE SYSTEM NITRITE UA NEGATIVE NEGATIVE INTERFACE SYSTEM PH UA 6.0 5.0 - 9.0 INTERFACE SYSTEM PROTEIN UA NEGATIVE NEGATIVE INTERFACE SYSTEM GLUCOSE UA NEGATIVE NEGATIVE INTERFACE SYSTEM KETONES UA NEGATIVE NEGATIVE INTERFACE SYSTEM UROBILINOGEN UA 0.2 0.2 INTE RFACE SYSTEM BILIRUBIN UA NEGATIVE NEGATIVE INTERFA CE SYSTEM BLOOD UA Large(A) NEGATIVE INTERFACE SYSTEM SPECIFIC GRAVITY UA 1.025 <=1.005 INTERFACE SYSTEM MICRO EXAM Yes(A) No INTERFACE SYSTEM 04/02/2007 1:48 PM CDT Donte Dao PA-C URINE ORDERABLES Edited Performing Organization Address [facility] de Phone Number INTERFACE SYSTEM Refer to clinic/hospital department * (ABNORMAL) POC GLUCOSE (04/02/2007 11:39 AM CDT) GLUCOSE POC 137(H) 60 - 100 mg/dL INTERFACE SYSTEM COMMENT POC Notify R.N INTERFA CE SYSTEM 04/02/2007 11:3 9 AM CDT Trell Omalley MD POINT OF CARE TESTING Edited Performing Organization Address [facility] Phone Number INTERFACE SYSTEM Refer to clinic/hospital department * (ABNORMAL) POC GLUCOSE (04/02/2007 7:20 AM CDT) GLUCOSE POC 133(H) 60 - 100 mg/dL INTERFACE SYSTEM COMMENT POC Notify R.N INTERFA CE SYSTEM 04/02/2007 7:20 AM CDT Trell Omalley MD POINT OF CARE TESTING Edited Performing Organization Address [facility] Phone Number INTERFACE SYSTEM Refer to clinic/hospital department * (ABNORMAL) BASIC METABOLIC PANEL (04/02/2007 5:26 AM CDT) GLUCOSE 135(H) 70 - 110 mg/dL INTERFACE SYSTEM BUN 26(H) 9 - 20 mg/dL INTERFACE SYSTEM CREATININE 1.2 0.7 - 1.5 mg/dL INTERFACE SYSTEM SODIUM 145 136 - 145 mEq/L INTERFACE SYSTEM CHLORIDE 103 95 - 110 mEq/L INTERFACE SYSTEM CO2 32 22 - 32 mmol/l INTERFACE SYSTEM CALCIUM 8.7 8.4 - 10.5 mg/dL INTERFACE SYSTEM OSMOLALITY, CALCULATED 307(H) 275 - 295 mOsm/Kg INTERFACE SYSTEM POTASSIUM 5.4(H) 3.5 - 5.0 mEq/L INTERFACE SYSTEM Comment:Results verified by repeat ANION GAP 15 9 - 20 mEq/L INTERFACE SYSTEM 04/02/2007 5:26 AM CDT Trell Omalley MD CHEMISTRY ORDERABLES Edited Performing Organization Address [facility] de Phone Number INTERFACE SYSTEM Refer to clinic/hospital department * (ABNORMAL) CBC WITH DIFFERENTIAL (04/02/2007 5:26 AM CDT) WBC 20.1(H) 4.8 - 10.8 K/ul INTERFACE SYSTEM RBC 3.12(L) 4.60 - 6.20 Mil/ul INTERFACE SYSTEM HEMOGLOBIN 9.6(L) 14.0 - 18.0 g/dL INTERFACE SYSTEM HEMATOCRIT 28.6(L) 41.0 - 53.0 % INTERFACE SYSTEM MCV 91.7 84.0 - 103.0 Fl INTERFACE SYSTEM MCH 30.8 27.0 - 34.0 pg INTERFACE SYSTEM MCHC 33.6 30.0 - 35.0 g/dL INTERFACE SYSTEM RDW 15.0(H) 11.0 - 14.5 % INTERFACE SYSTEM PLATELETS 110(L) 140 - 440 K/ul INTERFACE SYSTEM MPV 12.6 8.9 - 12.8 Fl INTERFACE SYSTEM NEUTROPHILS 81.7(H) 42.2 - 75.2 % INTERFACE SYSTEM LYMPHOCYTES 7.9(L) 24.0 - 44.0 % INTERFACE SYSTEM MONOCYTES 10.3(H) 2.0 - 10.0 % INTERFACE SYSTEM BASOPHILS 0.1 0.0 - 1.0 % INTERFACE SYSTEM NEUTROPHIL ABSOLUTE 16.4(H) 2.0 - 8.0 K/ul INTERFACE SYSTEM LYMPHOCYTE ABSOLUTE 1.6 1.2 - 4.0 K/ul INTERFACE SYSTEM MONOCYTE ABSOLUTE 2.1(H) 0.1 - 0.6 K/ul INTERFACE SYSTEM BASOPHILS ABSOLUTE 0.0 0.0 - 0.2 K/ul INTERFACE SYSTEM 04/02/2007 5:26 AM CDT us Trell Omalley MD HEMATOLOGY ORDERABLES Edited INTERFACE SYSTEM Refer to clinic/hospital department * (ABNORMAL) POC GLUCOSE (04/01/2007 9:41 PM CDT) GLUCOSE POC 187(H) 60 - 100 mg/dL INTERFACE SYSTEM 04/01/2007 9:41 PM CDT us Trell Omalley MD POINT OF CARE TESTING Edited INTERFACE SYSTEM Refer to clinic/hospital department * (ABNORMAL) POC GLUCOSE (04/01/2007 5:47 PM CDT) GLUCOSE POC 142(H) 60 - 100 mg/dL INTERFACE SYSTEM 04/01/2007 5:47 PM CDT Trell Omalley MD POINT OF CARE TESTING Edited Performing Organization Address City/State/[facility] de Phone Number INTERFACE SYSTEM Refer to clinic/hospital department * (ABNORMAL) POC GLUCOSE (04/01/2007 11:44 AM CDT) GLUCOSE POC 142(H) 60 - 100 mg/dL INTERFACE SYSTEM 04/01/2007 11:4 4 AM CDT Trell Omalley MD POINT OF CARE TESTING Edited Performing Organization Address [facility] de Phone Number INTERFACE SYSTEM Refer to clinic/hospital department * (ABNORMAL) POC GLUCOSE (04/01/2007 7:08 AM CDT) GLUCOSE POC 113(H) 60 - 100 mg/dL INTERFACE SYSTEM 04/01/2007 7:08 AM CDT Trell Omalley MD POINT OF CARE TESTING Edited Performing Organization Address [facility] Phone Number INTERFACE SYSTEM Refer to clinic/hospital department * (ABNORMAL) POC ISTAT EG 7+ (04/01/2007 5:29 AM CDT) SPECIMEN TYPE Arterial INTERF ALFRED SYSTEM Comment: Test Performed By [id number] PEEP: 05 Pressure Support: 05 Pulse OX: 97 Hemoglobin calculated from Hematocrit result FIO2 50 INTERFACE SYSTEM PH 7.42 7.35 - 7.45 Unit INTERFACE SYSTEM PH TEMP CORRECT 7.42 7.35 - 7.45 Unit INTERFACE SYSTEM PCO2 POC 51(H) 35 - 45 mmHg INTERFACE SYSTEM PCO2 TEMP CORRECT 51(H) 35 - 45 mmHg INTERFACE SYSTEM PO2 113(H) 80 - 105 mmHg INTERFACE SYSTEM PO2 TEMP CORRECT 113(H) 80 - 105 mmHg INTERFACE SYSTEM HCO3 (CALC) POC 32.8(H) 22.0 - 26.0 mmol/l INTERFACE SYSTEM BASE EXCESS 8(H) -2 - 3 mmol/l INTERFACE SYSTEM HEMOGLOBIN POC 9.9 3 g/dL 13.5 - 18.0 g/dL INTERFACE SYSTEM HEMATOCRIT ABG 29(L) 38 - 51 % INTER FACE SYSTEM O2 SATURATION 98 95 - 98 % INTERF ALFRED SYSTEM TCO2 (CALC) POC 34(H) 23 - 27 mmol/l INTERFACE SYSTEM SODIUM 143 138 - 146 mEq/L INTERFACE SYSTEM POTASSIUM 4.1 3.5 - 4.9 mEq/L INTERFACE SYSTEM CALCIUM IONIZED 1.26 1.12 - 1.32 mmol/l INTERFACE SYSTEM 04/01/2007 5:29 AM CDT Trell Omalley MD POINT OF CARE TESTING COM Ed ited INTERFACE SYSTEM Refer to clinic/hospital department * POC GLUCOSE (04/01/2007 5:14 AM CDT) GLUCOSE POC 96 60 - 100 mg/dL INTERFACE SYSTEM 04/01/2007 5:14 AM CDT Trell Omalley MD POINT OF CARE TESTING Edited Performing Organization Address City/[facility] Co de Phone Number INTERFACE SYSTEM Refer to clinic/hospital department * POC GLUCOSE (04/01/2007 4:00 AM CDT) GLUCOSE POC 81 60 - 100 mg/dL INTERFACE SYSTEM 04/01/2007 4:00 AM CDT Trell Omalley MD POINT OF CARE TESTING Edited Performing Organization Address City/[facility]/ZIP Co de Phone Number INTERFACE SYSTEM Refer to clinic/hospital department * (ABNORMAL) CBC WITH DIFFERENTIAL (04/01/2007 3:13 AM CDT) WBC 16.4(H) 4.8 - 10.8 K/ul INTERFACE SYSTEM RBC 3.57(L) 4.60 - 6.20 Mil/ul INTERFACE SYSTEM HEMOGLOBIN 10.8(L) 14.0 - 18.0 g/dL INTERFACE SYSTEM HEMATOCRIT 32.1(L) 41.0 - 53.0 % INTERFACE SYSTEM MCV 89.9 84.0 - 103.0 Fl INTERFACE SYSTEM MCH 30.3 27.0 - 34.0 pg INTERFACE SYSTEM MCHC 33.6 30.0 - 35.0 g/dL INTERFACE SYSTEM RDW 14.2 11.0 - 14.5 % INTERFACE SYSTEM PLATELETS 139(L) 140 - 440 K/ul INTERFACE SYSTEM MPV 12.5 8.9 - 12.8 Fl INTERFACE SYSTEM NEUTROPHILS 83.4(H) 42.2 - 75.2 % INTERFACE SYSTEM LYMPHOCYTES 3.5(L) 24.0 - 44.0 % INTERFACE SYSTEM MONOCYTES 13.1(H) 2.0 - 10.0 % INTERFACE SYSTEM NEUTROPHIL ABSOLUTE 13.7(H) 2.0 - 8.0 K/ul INTERFACE SYSTEM LYMPHOCYTE ABSOLUTE 0.6(L) 1.2 - 4.0 K/ul INTERFACE SYSTEM MONOCYTE ABSOLUTE 2.2(H) 0.1 - 0.6 K/ul INTERFACE SYSTEM 04/01/2007 3:13 AM CDT Joaquin Hernandez II, MD HEMATOLOGY ORDERABLES Sim james Performing Organization Address [facility] de Phone Number INTERFACE SYSTEM Refer to clinic/hospital department * (ABNORMAL) BASIC METABOLIC PANEL (04/01/2007 3:13 AM CDT) GLUCOSE 80 70 - 110 mg/dL INTERFACE SYSTEM BUN 17 9 - 20 mg/dL INTERFACE SYSTEM CREATININE 1.1 0.7 - 1.5 mg/dL INTERFACE SYSTEM SODIUM 148(H) 136 - 145 mEq/L INTERFACE SYSTEM POTASSIUM 3.3(L) 3.5 - 5.0 mEq/L INTERFACE SYSTEM CHLORIDE 113(H) 95 - 110 mEq/L INTERFACE SYSTEM CO2 32 22 - 32 mmol/l INTERFACE SYSTEM CALCIUM 9.1 8.4 - 10.5 mg/dL INTERFACE SYSTEM ANION GAP 6(L) 9 - 20 mEq/L INTERFACE SYSTEM OSMOLALITY, CALCULATED 302(H) 275 - 295 mOsm/Kg INTERFACE SYSTEM 04/01/2007 3:13 AM CDT Joaquin Hernandez II, MD CHEMISTRY ORDERABLES Edit ed Performing Organization Address City/[facility] de Phone Number INTERFACE SYSTEM Refer to clinic/hospital department * POC GLUCOSE (04/01/2007 2:57 AM CDT) GLUCOSE POC 93 60 - 100 mg/dL INTERFACE SYSTEM 04/01/2007 2:57 AM CDT Trell Omalley MD POINT OF CARE TESTING Edited Performing Organization Address City/[facility] de Phone Number INTERFACE SYSTEM Refer to clinic/hospital department * (ABNORMAL) POC GLUCOSE (04/01/2007 1:50 AM CDT) GLUCOSE POC 128(H) 60 - 100 mg/dL INTERFACE SYSTEM 04/01/2007 1:50 AM CDT Trell Omalley MD POINT OF CARE TESTING Edited Performing Organization Address [facility] de Phone Number INTERFACE SYSTEM Refer to clinic/hospital department * (ABNORMAL) POC GLUCOSE (04/01/2007 12:20 AM CDT) GLUCOSE POC 180(H) 60 - 100 mg/dL INTERFACE SYSTEM 04/01/2007 12:2 0 AM CDT Trell Omalley MD POINT OF CARE TESTING Edited Performing Organization Address [facility] de Phone Number INTERFACE SYSTEM Refer to clinic/hospital department * (ABNORMAL) POC GLUCOSE (03/31/2007 11:39 PM CDT) GLUCOSE POC 203(H) 60 - 100 mg/dL INTERFACE SYSTEM 03/31/2007 11:3 9 PM CDT Trell Omalley MD POINT OF CARE TESTING Edited Performing Organization Address City/[facility] de Phone Number INTERFACE SYSTEM Refer to clinic/hospital department * (ABNORMAL) POC GLUCOSE (03/31/2007 10:26 PM CDT) GLUCOSE POC 226(H) 60 - 100 mg/dL INTERFACE SYSTEM 03/31/2007 10:2 6 PM CDT Trell Omalley MD POINT OF CARE TESTING Edited Performing Organization Address City/[facility] de Phone Number INTERFACE SYSTEM Refer to clinic/hospital department * (ABNORMAL) POC GLUCOSE (03/31/2007 9:26 PM CDT) GLUCOSE POC 234(H) 60 - 100 mg/dL INTERFACE SYSTEM 03/31/2007 9:26 PM CDT Trell Omalley MD POINT OF CARE TESTING Edited Performing Organization Address City/[facility] de Phone Number INTERFACE SYSTEM Refer to clinic/hospital department * (ABNORMAL) POC GLUCOSE (03/31/2007 8:17 PM CDT) GLUCOSE POC 257(H) 60 - 100 mg/dL INTERFACE SYSTEM 03/31/2007 8:17 PM CDT Trell Omalley MD POINT OF CARE TESTING Edited Performing Organization Address [facility] Phone Number INTERFACE SYSTEM Refer to clinic/hospital department * (ABNORMAL) POC ISTAT EG 7+ (03/31/2007 8:17 PM CDT) SPECIMEN TYPE Arterial INTERF ALFRED SYSTEM Comment: Test Performed By [id number] Critical result performed at the point of care. PEEP: 05 Pressure Support: 05 Pulse OX: 98 Hemoglobin calculated from Hematocrit result FIO2 50 INTERFACE SYSTEM TEMPERATURE 99.5 DegC INTERFAC E SYSTEM PH 7.30(L) 7.35 - 7.45 Unit INTERFACE SYSTEM PH TEMP CORRECT 7.30(L) 7.35 - 7.45 Unit INTERFACE SYSTEM PCO2 POC 44 35 - 45 mmHg INTERFACE SYSTEM PCO2 TEMP CORRECT 45 35 - 45 mmHg INTERFACE SYSTEM PO2 103 80 - 105 mmHg INTERFACE SYSTEM PO2 TEMP CORRECT 106(H) 80 - 105 mmHg INTERFACE SYSTEM HCO3 (CALC) POC 21.9(L) 22.0 - 26.0 mmol/l INTERFACE SYSTEM BASE EXCESS -4(L) -2 - 3 mmol/l INTERFACE SYSTEM HEMOGLOBIN POC 10.5 3 g/dL 13.5 - 18.0 g/dL INTERFACE SYSTEM HEMATOCRIT ABG 31(L) 38 - 51 % INTER FACE SYSTEM O2 SATURATION 97 95 - 98 % INTERF ALFRED SYSTEM TCO2 (CALC) POC 23 23 - 27 mmol/l INTERFACE SYSTEM SODIUM 143 138 - 146 mEq/L INTERFACE SYSTEM POTASSIUM 2.7(AA) 3.5 - 4.9 mEq/L INTERFACE SYSTEM CALCIUM IONIZED 1.17 1.12 - 1.32 mmol/l INTERFACE SYSTEM 03/31/2007 8:17 PM CDT Trell Omalley MD POINT OF CARE TESTING COM Ed ited INTERFACE SYSTEM Refer to clinic/hospital department * (ABNORMAL) POC GLUCOSE (03/31/2007 7:35 PM CDT) GLUCOSE POC 265(H) 60 - 100 mg/dL INTERFACE SYSTEM 03/31/2007 7:35 PM CDT Trell Omalley MD POINT OF CARE TESTING Edited INTERFACE SYSTEM Refer to clinic/hospital department * (ABNORMAL) POC ISTAT EG 7+ (03/31/2007 6:39 PM CDT) SPECIMEN TYPE Arterial INTERF ALFRED SYSTEM Comment: Test Performed By [id number] Critical result performed at the point of care. PEEP: 05 Pressure Support: 05 Pulse OX: 98 Hemoglobin calculated from Hematocrit result FIO2 50 INTERFACE SYSTEM TEMPERATURE 99.8 DegC INTERFAC E SYSTEM PH 7.21(AA) 7.35 - 7.45 Unit INTERFACE SYSTEM PH TEMP CORRECT 7.20(AA) 7.35 - 7.45 Unit INTERFACE SYSTEM PCO2 POC 45 35 - 45 mmHg INTERFACE SYSTEM PCO2 TEMP CORRECT 47(H) 35 - 45 mmHg INTERFACE SYSTEM PO2 122(H) 80 - 105 mmHg INTERFACE SYSTEM PO2 TEMP CORRECT 126(H) 80 - 105 mmHg INTERFACE SYSTEM HCO3 (CALC) POC 18.0(L) 22.0 - 26.0 mmol/l INTERFACE SYSTEM BASE EXCESS -10(L) -2 - 3 mmol/l INTERFACE SYSTEM HEMOGLOBIN POC 10.9 3 g/dL 13.5 - 18.0 g/dL INTERFACE SYSTEM HEMATOCRIT ABG 32(L) 38 - 51 % INTER FACE SYSTEM O2 SATURATION 98 95 - 98 % INTERF ALFRED SYSTEM TCO2 (CALC) POC 19(L) 23 - 27 mmol/l INTERFACE SYSTEM SODIUM 141 138 - 146 mEq/L INTERFACE SYSTEM POTASSIUM 3.2(L) 3.5 - 4.9 mEq/L INTERFACE SYSTEM CALCIUM IONIZED 1.23 1.12 - 1.32 mmol/l INTERFACE SYSTEM 03/31/2007 6:39 PM CDT Trell Omalley MD POINT OF CARE TESTING COM Ed ited Performing Organization Address City/[facility] de Phone Number INTERFACE SYSTEM Refer to clinic/hospital department * (ABNORMAL) POC GLUCOSE (03/31/2007 6:01 PM CDT) GLUCOSE POC 268(H) 60 - 100 mg/dL INTERFACE SYSTEM 03/31/2007 6:01 PM CDT Trell Omalley MD POINT OF CARE TESTING Edited Performing Organization Address [facility] de Phone Number INTERFACE SYSTEM Refer to clinic/hospital department * (ABNORMAL) POC GLUCOSE (03/31/2007 4:52 PM CDT) GLUCOSE POC 294(H) 60 - 100 mg/dL INTERFACE SYSTEM 03/31/2007 4:52 PM CDT Trell Omalley MD POINT OF CARE TESTING Edited Performing Organization Address City/[facility] de Phone Number INTERFACE SYSTEM Refer to clinic/hospital department * (ABNORMAL) POC GLUCOSE (03/31/2007 4:11 PM CDT) GLUCOSE POC 286(H) 60 - 100 mg/dL INTERFACE SYSTEM 03/31/2007 4:11 PM CDT Trell Omalley MD POINT OF CARE TESTING Edited Performing Organization Address City/[facility] de Phone Number INTERFACE SYSTEM Refer to clinic/hospital department * (ABNORMAL) POC ISTAT EG 7+ (03/31/2007 2:51 PM CDT) SPECIMEN TYPE Arterial INTERF ALFRED SYSTEM Comment: Test Performed By [id number] Tidal volume: 750 PEEP: 10 Rate: 12 Pulse OX: 100 Hemoglobin calculated from Hematocrit result FIO2 60 INTERFACE SYSTEM TEMPERATURE 98.8 DegC INTERFAC E SYSTEM PH 7.35 7.35 - 7.45 Unit INTERFACE SYSTEM PH TEMP CORRECT 7.35 7.35 - 7.45 Unit INTERFACE SYSTEM PCO2 POC 42 35 - 45 mmHg INTERFACE SYSTEM PCO2 TEMP CORRECT 42 35 - 45 mmHg INTERFACE SYSTEM PO2 97 80 - 105 mmHg INTERFACE SYSTEM PO2 TEMP CORRECT 98 80 - 105 mmHg INTERFACE SYSTEM HCO3 (CALC) POC 23.0 22.0 - 26.0 mmol/l INTERFACE SYSTEM BASE EXCESS -3(L) -2 - 3 mmol/l INTERFACE SYSTEM HEMOGLOBIN POC 12.2 3 g/dL 13.5 - 18.0 g/dL INTERFACE SYSTEM HEMATOCRIT ABG 36(L) 38 - 51 % INTER FACE SYSTEM O2 SATURATION 97 95 - 98 % INTERF ALFRED SYSTEM TCO2 (CALC) POC 24 23 - 27 mmol/l INTERFACE SYSTEM SODIUM 137(L) 138 - 146 mEq/L INTERFACE SYSTEM POTASSIUM 4.2 3.5 - 4.9 mEq/L INTERFACE SYSTEM CALCIUM IONIZED 1.15 1.12 - 1.32 mmol/l INTERFACE SYSTEM 03/31/2007 2:51 PM CDT Trell Omalley MD POINT OF CARE TESTING COM Ed ited Performing Organization Address [facility] Phone Number INTERFACE SYSTEM Refer to clinic/hospital department * (ABNORMAL) POC GLUCOSE (03/31/2007 2:26 PM CDT) GLUCOSE POC 279(H) 60 - 100 mg/dL INTERFACE SYSTEM 03/31/2007 2:26 PM CDT Trell Omalley MD POINT OF CARE TESTING Edited Performing Organization Address City/[facility] de Phone Number INTERFACE SYSTEM Refer to clinic/hospital department * (ABNORMAL) CBC WITHOUT DIFFERENTIAL (03/31/2007 1:32 PM CDT) WBC 22.9(H) 4.8 - 10.8 K/ul INTERFACE SYSTEM RBC 3.49(L) 4.60 - 6.20 Mil/ul INTERFACE SYSTEM HEMOGLOBIN 10.6(L) 14.0 - 18.0 g/dL INTERFACE SYSTEM HEMATOCRIT 31.5(L) 41.0 - 53.0 % INTERFACE SYSTEM MCV 90.3 84.0 - 103.0 Fl INTERFACE SYSTEM MCH 30.4 27.0 - 34.0 pg INTERFACE SYSTEM MCHC 33.7 30.0 - 35.0 g/dL INTERFACE SYSTEM RDW 14.2 11.0 - 14.5 % INTERFACE SYSTEM PLATELETS 185 140 - 440 K/ul INTERFACE SYSTEM MPV 12.2 8.9 - 12.8 Fl INTERFACE SYSTEM NEUTROPHILS 79.1(H) 42.2 - 75.2 % INTERFACE SYSTEM LYMPHOCYTES 15.2(L) 24.0 - 44.0 % INTERFACE SYSTEM MONOCYTES 5.4 2.0 - 10.0 % INTERFACE SYSTEM EOSINOPHILS 0.2 0.0 - 7.0 % INTERFACE SYSTEM BASOPHILS 0.1 0.0 - 1.0 % INTERFACE SYSTEM NEUTROPHIL ABSOLUTE 18.1(H) 2.0 - 8.0 K/ul INTERFACE SYSTEM LYMPHOCYTE ABSOLUTE 3.5 1.2 - 4.0 K/ul INTERFACE SYSTEM MONOCYTE ABSOLUTE 1.2(H) 0.1 - 0.6 K/ul INTERFACE SYSTEM EOSINOPHIL ABSOLUTE 0.1 0.0 - 0.7 K/ul INTERFACE SYSTEM BASOPHILS ABSOLUTE 0.0 0.0 - 0.2 K/ul INTERFACE SYSTEM 03/31/2007 1:32 PM CDT us Trell Omalley MD HEMATOLOGY ORDERABLES Edited INTERFACE SYSTEM Refer to clinic/hospital department * (ABNORMAL) PT AND APTT (03/31/2007 1:32 PM CDT) PROTIME 19.3(H) 13.0 - 15.7 Secs INTERFACE SYSTEM Comment: As of 06 note change in normal range. INR 1.5 INTERFACE SYSTEM Comment: Expected Values for INR: DVT/PE Goal INR 2.5; range 2.0 - 3.0 Valve Replacement Tissue Goal INR 2.5; range 2.0 - 3.0 Mechanical Goal INR 3.0; range 2.5 - 3.5 POST-GA Goal INR 2.5; range 2.0 - 3.0 or Goal 3.0; range 2.5 - 3.5 Atrial Fibrillation Goal INR 2.5; range 2.0 - 3.0 Ischemic Stroke Goal INR 2.5; range 2.0 - 3.0 For additional information see Guidelines for Anticoagulation available from the pharmacy [facility] PTT 30.3 21.6 - 35.6 Secs INTERFACE SYSTEM Comment: Therapeutic Range: Hi-level PE/DVT heparin protocol 80.1 -95.0 sec Lo-level PE/DVT heparin protocol 67.1 - 80.0 sec Cardiac Heparin Protocol 67.1 - 85.0 sec Neuro Heparin Protocol 67.1 - 80.0 sec As of 05/13/2006 note change in APTT Normal Range. 03/31/2007 1:32 PM CDT us Trell Omalley MD HEMATOLOGY ORDERABLES Edited Performing Organization Address City/[facility] de Phone Number INTERFACE SYSTEM Refer to clinic/hospital department * (ABNORMAL) LIPID PANEL (03/29/2007 6:40 AM CDT) CHOLESTEROL 198 75 - 200 mg/dL INTERFACE SYSTEM HDL 42 40 - 60 mg/dL INTERFACE SYSTEM TRIGLYCERIDE 122 0 - 200 mg/dL INTERFACE SYSTEM CALCULATED LDL CHOLESTEROL 132(H) 0 - 130 mg/dL INTERFACE SYSTEM CALCULATED TOTAL CHOLESTEROL TO HDL RATIO 4.71 3.43 - 4.97 INTERFACE SYSTEM 03/29/2007 6:40 AM CDT Trell Omalley MD CHEMISTRY ORDERABLES Edited Performing Organization Address City/[facility] Co de Phone Number INTERFACE SYSTEM Refer to clinic/hospital department * PT AND APTT (03/28/2007 11:14 AM CDT) PROTIME 14.4 13.0 - 15.7 Secs INTERFACE SYSTEM Comment: As of 06 note change in normal range. INR 1.0 INTERFACE SYSTEM Comment: Expected Values for INR: DVT/PE Goal INR 2.5; range 2.0 - 3.0 Valve Replacement Tissue Goal INR 2.5; range 2.0 - 3.0 Mechanical Goal INR 3.0; range 2.5 - 3.5 POST-GA Goal INR 2.5; range 2.0 - 3.0 or Goal 3.0; range 2.5 - 3.5 Atrial Fibrillation Goal INR 2.5; range 2.0 - 3.0 Ischemic Stroke Goal INR 2.5; range 2.0 - 3.0 For additional information see Guidelines for Anticoagulation available from the pharmacy [facility] PTT 26.5 21.6 - 35.6 Secs INTERFACE SYSTEM Comment: Therapeutic Range: Hi-level PE/DVT heparin protocol 80.1 -95.0 sec Lo-level PE/DVT heparin protocol 67.1 - 80.0 sec Cardiac Heparin Protocol 67.1 - 85.0 sec Neuro Heparin Protocol 67.1 - 80.0 sec As of 05/13/2006 note change in APTT Normal Range. 03/28/2007 11:1 4 AM CDT Trell Omalley MD HEMATOLOGY ORDERABLES Edited INTERFACE SYSTEM Refer to clinic/hospital department * (ABNORMAL) CBC WITHOUT DIFFERENTIAL (03/28/2007 11:14 AM CDT) WBC 9.8 4.8 - 10.8 K/ul INTERFACE SYSTEM RBC 5.21 4.60 - 6.20 Mil/ul INTERFACE SYSTEM HEMOGLOBIN 16.3 14.0 - 18.0 g/dL INTERFACE SYSTEM HEMATOCRIT 47.2 41.0 - 53.0 % INTERFACE SYSTEM MCV 90.6 84.0 - 103.0 Fl INTERFACE SYSTEM MCH 31.3 27.0 - 34.0 pg INTERFACE SYSTEM MCHC 34.5 30.0 - 35.0 g/dL INTERFACE SYSTEM RDW 14.6(H) 11.0 - 14.5 % INTERFACE SYSTEM PLATELETS 251 140 - 440 K/ul INTERFACE SYSTEM MPV 12.2 8.9 - 12.8 Fl INTERFACE SYSTEM NEUTROPHILS 64.0 42.2 - 75.2 % INTERFACE SYSTEM LYMPHOCYTES 25.4 24.0 - 44.0 % INTERFACE SYSTEM MONOCYTES 9.6 2.0 - 10.0 % INTERFACE SYSTEM EOSINOPHILS 0.7 0.0 - 7.0 % INTERFACE SYSTEM BASOPHILS 0.3 0.0 - 1.0 % INTERFACE SYSTEM NEUTROPHIL ABSOLUTE 6.3 2.0 - 8.0 K/ul INTERFACE SYSTEM LYMPHOCYTE ABSOLUTE 2.5 1.2 - 4.0 K/ul INTERFACE SYSTEM MONOCYTE ABSOLUTE 0.9(H) 0.1 - 0.6 K/ul INTERFACE SYSTEM EOSINOPHIL ABSOLUTE 0.1 0.0 - 0.7 K/ul INTERFACE SYSTEM BASOPHILS ABSOLUTE 0.0 0.0 - 0.2 K/ul INTERFACE SYSTEM 03/28/2007 11:1 4 AM CDT Trell Omalley MD HEMATOLOGY ORDERABLES Edited Performing Organization Address City/[facility] de Phone Number INTERFACE SYSTEM Refer to clinic/hospital department * (ABNORMAL) BASIC METABOLIC PANEL (03/28/2007 11:14 AM CDT) GLUCOSE 103 70 - 110 mg/dL INTERFACE SYSTEM BUN 23(H) 9 - 20 mg/dL INTERFACE SYSTEM CREATININE 1.2 0.7 - 1.5 mg/dL INTERFACE SYSTEM SODIUM 139 136 - 145 mEq/L INTERFACE SYSTEM POTASSIUM 4.1 3.5 - 5.0 mEq/L INTERFACE SYSTEM Comment:Specimen slightly he molyzed CHLORIDE 104 95 - 110 mEq/L INTERFACE SYSTEM CO2 29 22 - 32 mmol/l INTERFACE SYSTEM CALCIUM 9.7 8.4 - 10.5 mg/dL INTERFACE SYSTEM ANION GAP 10 9 - 20 mEq/L INTERFACE SYSTEM OSMOLALITY, CALCULATED 290 275 - 295 mOsm/Kg INTERFACE SYSTEM 03/28/2007 11:1 4 AM CDT Trell Omalley MD CHEMISTRY ORDERABLES Edited Performing Organization Address [facility] Co de Phone Number INTERFACE SYSTEM Refer to clinic/hospital department documented in this encounter Visit Diagnoses Diagnosis Coronary atherosclerosis of [place] coronary artery- Primary documented in this encounter Additional Health Concerns Infection Onset Date Last Indicated Resolved Time R/O COVID-19 05/01/2020 05/01/2020 05/01/2020 6:25 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
--- NOTE | 2025-04-28 05:17 | ECG_ITS ---
[employer] [employer] Test Date: 2025-04-28 Pat Name: Dane Zimmer Department: Room: Gender: Male Power Originator: : 1940 Requested By: Emerson Dumont Order Number: [id number] Rader MD: Asha Hernadez M.D. Measurements Intervals [place] Rate: 99 P: 0 CO: 0 QRS: -58 QRSD: 130 T: 137 QT: 389 QTc: 501 Interpretive Statements Possible atrial fibrillation with a demand V pacing ELECTRONIC VENTRICULAR PACEMAKER ABNORMAL RHYTHM ECG Compared to ECG 01/18/2023 14:37:27 Atrial fibrillation no longer present T-wave abnormality no longer present Electronically Signed On 04-28-2025 13:49:04 MOTOR EQUIPMENT SERGEANT by Asha Hernadez M.D. [email or web address]
--- NOTE | 2025-04-28 05:20 | XRR_ITS ---
PROCEDURE INFORMATION: Exam: XR Chest Exam date and time: 04/28/2025 6:21 AM Age: 85 years old Clinical indication: Shortness of breath; Prior surgery; Surgery date: 6+ months; Surgery type: Pacer. Open heart; C/O SOB TECHNIQUE: Imaging protocol: Radiologic exam of the chest. Views: 1 view. COMPARISON: CR XR chest 1V portable [id number] 01/18/2023 1:11 PM FINDINGS: Tubes, catheters and devices: Multilead pacemaker/defibrillator. Lungs: Stable diffuse interstitial prominence. Pleural spaces: Slight pleural thickening on the left. Heart/Mediastinum: CABG. Vasculature: Mild cardiomegaly and uncoiling of the thoracic aorta. Bones/joints: Unremarkable. XR/XR chest 1V portable [id number] IMPRESSION: Pacemaker.
[2025-04-28 05:34] LABS: Base Excess VBG 0.9 mmol/L (-3.0-3.0); Blood Gas Allen Test Pos; Blood Gas Operator Identificat gerca; Blood Gas Sample Type Venous; HCO3 VBG 27.2 mmol/L (24-28); Hematocrit 43.8 % (37-53); Hemoglobin 14.70 g/dL (11.27-16.99); Mean Corpuscular HGB Conc 33.6 g/dL (30-55); Mean Corpuscular Hemoglobin 32.0 pg (27-33); Mean Corpuscular Volume 95.2 fl (82-101); Nucleated Red Blood Cells % 0 %; PCO2 VBG 48.0 mmHg (41-51); PO2 VBG 30.6 mmHg (25-40); Platelet Count 166 10^3/cmm (157-399); Red Blood Count 4.60 10^6/uL (3.85-5.65); Venous Blood Gas Hematocrit 47.0 % (42-52); White Blood Count 13.51 10^3/uL (3.29-11.43); pH VBG 7.36 (7.32-7.42)
--- NOTE | 2025-04-28 05:48 | ED_ITS ---
HPI - SOB/Dyspnea 2 General: Chief Complaint: Shortness of Breath/Dyspnea Stated Complaint: SOB CHF Gail Time Seen by Provider: 04/28/25 05:47 History of Present Illness: HPI Narrative: 85-year-old man with a history of lee ry artery disease, status post CABG, atrial fibrillation, status post pacemaker placement, chronic anticoagulation on Coumadin and hypertension who presents to the emergency room with shortness of breath. This is chronic but worse over the last week or so. He has been having orthopnea. No lower extremity swelling. Borderline oxygen saturations and at the time I see him he is placed on oxygen. He is not on oxygen at home. No chest pain. No abdominal pain. No vomiting. No altered mental status. He has had some cough. No fever. Related Data Home Medications ?Medication ?Instructions ?Recorded ?Confirmed aspirin 81 mg tablet,delayed 81 mg PO DAILY 06/06/20 0 01/18/23 release (Adult Low Dose Aspirin) lisinopril 10 mg tablet (Prinivil) 20 mg PO BID 01/18/23 Previous Rx's ?Medication ?Instructions ?Recorded furosemide 20 mg tablet (Lasix) 20 mg PO DAILY #30 tab s 01/18/23 Allergies Allergy/AdvReac Type Severity Reaction Status Date / Time No Known Allergies Allergy Verified 01/18/23 12:42 Review of Systems 2 Narrative: Constitutional symptoms: Negative except as documented in HPI. Skin symptoms: Negative except as documented in HPI. Eye symptoms: Negative except as documented in HPI. ENMT symptoms: Negative except as documented in HPI. Respiratory symptoms: Negative except as documented in HPI. Cardiovascular symptoms: Negative except as documented in HPI. Gastrointestinal symptoms: Negative except as documented in HPI. Genitourinary symptoms: Negative except as documented in HPI. Musculoskeletal symptoms: Negative except as documented in HPI. Neurologic symptoms: Negative except as documented in HPI. Psychiatric symptoms: Negative except as documented in HPI. Endocrine symptoms: Negative except as documented in HPI. PFSH ED 2 PFSH: Family History Sister Cancer breast CAD (coronary artery disease) Brother Diabetes CAD (coronary artery disease) Father Diabetes CAD (coronary artery disease) Social History Marital status: Physical Exam 2 Narrative: EXAM NARRATIVE: General: Alert, no acute distress. Skin: Warm, dry. Head: Normocephalic, atraumatic. Neck: Supple, trachea midline. Eye: Extraocular movements are intact. Ears, nose, mouth and throat: mucosa moist. Cardiovascular: Regular, Normal peripheral perfusion. Respiratory: Lungs are clear to auscultation, respirations are non-labored, breath sounds are equal, Symmetrical chest wall expansion. Gastrointestinal: Soft, Nontender, Non distended Musculoskeletal: Normal ROM, no deformity. Neurological: Alert and oriented, No focal neurological deficit observed. Psychiatric: Cooperative, appropriate mood & affect. Course 2 Vital Signs: Vital signs: Vital Signs Temperature 98.4 F 04/28/25 05:15 Pulse Rate 84 04/28/25 06:45 Respiratory Rate 22 H 04/28/25 06:45 Blood Pressure 141/95 04/28/25 06:45 Pulse Oximetry 94 04/28/25 07:17 Oxygen Delivery Me thod Nasal Cannula 04/28/25 07:17 Oxygen Flow Rate 1 04/28/25 07:17 MDM - SOB/Dyspnea Medical Decision Making Medical decision making Patient's reason for coming to the emergency room: Shortness of breath Social determinants: Retired. Son is present. I reviewed the patient's medical record. 85-year-old man with a history of coronary artery disease, status post CABG, atrial fibrillation, status post pacemaker placement, chronic anticoagulation on eliquis and hypertension. Patient has 1 other visit to the emergency room here few months ago. Family does state he is supposed to start following with cardiology here in the near future. He has an appointment. I reviewed the patient's current home meds Patient tells me he has anticoagulated on Eliquis Alternate historians: None Differential diagnosis for patient with shortness of breath includes but is not limited to and based on the above HPI, review of systems and physical exam: Pneumonia. Bronchitis. Asthma or COPD with acute exacerbation. Acute coronary syndrome / NC. Pulmonary embolism. Anxiety. Congestive heart failure. Viral infections including influenza and Covid-19. Atrial fibrillation. Anxiety. Pleural effusion. Pneumothorax. Orders placed to evaluate differential diagnosis based on the above differential, HPI and physical exam EKG: Time 5:17 AM. Rate 99 atrial fibrillation with controlled rate, No ST-T changes, no ectopy, This was reviewed and interpreted by the ER physician at 5:22 AM Chest x-ray: Pacemaker, sternotomy wires, mild cardiomegaly. This was reviewed and interpreted by myself the emergency room physician. I also reviewed the radiology report. Lab Review: Laboratory results were reviewed and interpreted by myself the emergency room physician. Mild stable leukocytosis. No anemia. No renal failure. proBNP is significantly elevated over his baseline at 18,000. Assessment of risk: Level of risk: Moderate risk patient. Elderly with multiple comorbidities. Hospitalization considerations: Patient is being admitted for congestive heart failure and hypoxemia Reexamination: Patient continues to require 2 to 3 L nasal cannula. No altered mental status. No focal motor deficits. Work of breathing while resting is mildly increased with some tachypnea. Consultation: I spoke with Dr. Simons who is on-call for the hospital service who agrees to admission. Assessment and plan: Congestive heart failure Hypoxemia ?Requiring 2 L nasal cannula. 80 mg IV Lasix. -I discussed the patient with the hospitalist on-call who is admitting the patient. - Discussed findings and plan with patient. Answered any questions. - All laboratory values were reviewed and interpreted personally by myself, the ER physician - All imaging was reviewed and interpreted personally by myself, the ER physician. - Evaluation and treatment of this problem were appropriate in the emergency setting Lab Data 04/28/25 05:24 04/28/25 05:24 Labs/Radiology: Radiology Impressions Chest X-Ray 04/28/25 05:20 IMPRESSION: Pacemaker. Laboratory Results WBC 13.51 10^3/uL (3.29-11.43) H 04/28/25 05:24 RBC 4.60 10^6/uL (3.85-5.65) 04/28/25 05:24 Hgb 14.70 g/dL (11.27-16.99) 04/28/25 05:24 Hct 43.8 % (37-53) 04/28/25 05:24 MCV 95.2 fl (82-101) 04/28/25 05:24 MCH 32.0 pg (27-33) 04/28/25 05:24 MCHC 33.6 g/dL (30-55) 04/28/25 05:24 RDW 14.9 % (12.1-15.1) 04/28/25 05:24 Plt Count 166 10^3/cmm (157-399) 04/28/25 05:24 MPV 11.7 fL (7.4-10.4) H 04/28/25 05:24 Neut % (Auto) 85.9 % 04/28/25 05:24 Lymph % (Auto) 5.0 % 04/28/25 05:24 [place] % (Auto) 8.6 % 04/28/25 05:24 Eos % (Auto) 0.0 % 04/28/25 05:24 Baso % (Auto) 0.1 % 04/28/25 05:24 Neut # (Auto) 11.60 10^3/uL (1.8-7.7) H 04/28/25 05:24 Lymph # (Auto) 0.7 10^3/uL (0.8-4.8) L 04/28/25 05:24 [place] # (Auto) 1.2 10^3/uL (0.2-0.9) H 04/28/25 05:24 Eos # (Auto) 0.0 10^3/uL (0.0-0.8) 04/28/25 05:24 Baso # (Auto) 0.0 10^3/uL (0.0-0.1) 04/28/25 05:24 Nucleated RBC % (auto) 0 % 04/28/25 05:24 Nucleated RBCs # 0.0 /100WBC 04/28/25 05:24 Specimen Type Venous 04/28/25 05:24 Alexi Test Pos 04/28/25 05:24 VBG pH 7.36 (7.32-7.42) 04/28/25 05:24 VBG pCO2 48.0 mmHg (41-51) 04/28/25 05:24 VBG pO2 30.6 mmHg (25-40) 04/28/25 05:24 VBG HCO3 27.2 mmol/L (24-28) 04/28/25 05:24 VBG Base Excess 0.9 mmol/L (-3.0-3.0) 04/28/25 05:24 VBG Hematocrit 47.0 % (42-52) 04/28/25 05:24 O2 Delivery Device Room air 04/28/25 05:24 FiO2 21.0 % 04/28/25 05:24 Sliding Joint Maker ID [email or web address] 04/28/25 05:24 Sodium 137 mmol/L (136-145) 04/28/25 05:24 Potassium 4.6 mmol/L (3.5-5.1) 04/28/25 05:24 Chloride 98 mmol/L (98-107) 04/28/25 05:24 Carbon Dioxide 26 mmol/L (22-29) 04/28/25 05:24 Anion Gap 17.6 (5-19) 04/28/25 05:24 BUN 18 mg/dL (8-23) 04/28/25 05:24 Creatinine 1.1 mg/dL (0.7-1.2) 04/28/25 05:24 GFR Calculation Not Reportable 04/28/25 05:24 Glucose 143 mg/dL (65-115) H 04/28/25 05:24 Calculated Osmolality 288 mOsm/kg (285-295) 04/28/25 05:24 Lactic Acid 2.9 mmol/L (0.5-2.2) H 04/28/25 05:24 Calcium 9.7 mg/dL (8.5-10.5) 04/28/25 05:24 Magnesium 2.0 mg/dL (1.7-2.3) 04/28/25 05:24 Total Bilirubin 2.2 mg/dL (0.15-1.2) H 04/28/25 05:24 AST 35 U/L (0-40) 04/28/25 05:24 ALT 32 U/L (0-41) 04/28/25 05:24 Alkaline Phosphatase 131 U/L (40-130) H 04/28/25 05:24 Troponin T Baseline 29 ng/L (0-15) H 04/28/25 05:24 C-React Prot High Sens 6.370 mg/dL (0.0-0.3) H 04/28/25 05:24 NT-Pro-B Natriuret Pep 41116 pg/mL (0-450) H 04/28/25 05:24 Total Protein 7.3 g/dL (6.6-8.7) 04/28/25 05:24 Albumin 4.5 g/dL (3.5-5.2) 04/28/25 05:24 Globulin 2.8 g/dL (1.3-4.6) 04/28/25 05:24 Influenza A (PCR) Negative (Negative) 04/28/25 05:30 Influenza Type B (PCR) Negative (Negative) 04/28/25 05:30 RSV (PCR) Negative (Negative) 04/28/25 05:30 SARS-CoV-2 (PCR) Negative (Negative) 04/28/25 05:30 All radiology interpretation(s) finalized by discharge Discharge Plan Discharge Patient Disposition: Placed in Observation Clinical Impression: Congestive heart failure, Hypoxemia Coding Level of Care Code ED Claim Agent for Haresh Clark
[2025-04-28 05:58] LABS: Lactic Sepsis W/Reflex 2.9 mmol/L (0.5-2.2)
[2025-04-28 06:01] LABS: Troponin(5th) Baseline 29 ng/L (0-15)
[2025-04-28 06:10] LABS: Alanine Aminotransferase 32 U/L (0-41); Albumin Level 4.5 g/dL (3.5-5.2); Alkaline Phosphatase 131 U/L (40-130); Anion Gap 17.6 (5-19); Aspartate Amino Transferase 35 U/L (0-40); Blood Urea Nitrogen 18 mg/dL (8-23); Calcium 9.7 mg/dL (8.5-10.5); Carbon Dioxide 26 mmol/L (22-29); Chloride 98 mmol/L (98-107); Globulin 2.8 g/dL (1.3-4.6); Glucose 143 mg/dL (65-115); Magnesium 2.0 mg/dL (1.7-2.3); NT Pro B Type Natriuretic Pept 18755 pg/mL (0-450); Osmolality Calculated 288 mOsm/kg (285-295); Potassium 4.6 mmol/L (3.5-5.1); Sodium 137 mmol/L (136-145); Total Protein 7.3 g/dL (6.6-8.7)
[2025-04-28 06:21] LABS: Respiratory Syncytial Virus Ce NEGATIVE (Negative); SARS-CoV-2 PCR NEGATIVE (Negative)
[2025-04-28 06:40] LABS: Reflex Lactate Order REFLEX LACTIC ORDERD
[2025-04-28 06:41] LABS: CRP High Sensitivity Cardiac 6.370 mg/dL (0.0-0.3)
[2025-04-28 07:48] LABS: Lactic Acid level (Lactate) 2.3 mmol/L (0.5-2.2)
[2025-04-28 07:49] LABS: Troponin 5 2HR 24.12 ng/L (0-15)
[2025-04-28] MEDS: FUROsemide 10 mg/mL SDV 10mL 80 MG IVP (07:49)
[2025-04-28 07:56] LABS: Troponin 5 2HR Delta -4.88 ABS# (0-10)
--- NOTE | 2025-04-28 08:40 | PC.PHAR ---
PAtient 's son was not sure if he takes both strengths of Furosemide. Patient has furosemide 20 filled 02/16/25 90days to take 1 after lunch , and A furosemide 40 every morning. Patient only had one bottle with him , but fill history shoes him filling both for a while. No potassium prescribed .
--- NOTE | 2025-04-28 09:18 | PM.HP ---
Providers/Chief Complaint Admitting Physician: Jorge Yusuf Primary Care Provider: Ronen Macias Chief Complaint: SOB CHF [place] History of Present Illness As per the previous retrospective notes and the patient: Dane Zimmer is a 85 year old male with history of coronary artery disease, status post CABG, atrial fibrillation, status post pacemaker placement, chronic anticoagulation on Coumadin and hypertension who presents to the emergency room with shortness of breath and LLE. the patient did not report fevers, cough and no URTI like symptoms. there was no chest pressure, chest pain, or abd pain or any nausea or vomiting. there was mild orthopnea and PND. but no syncope or pre-syncope. no dizziness. patient is a ex smoker since 30 yrs ago no other alcohol intake or any other drugs. Review of Systems General: Reports: 10 or more systems reviewed and unremarkable except in HPI and below Medications/Allergies Home Medications ?Medication ?Instructions ?Recorded ?Confirmed ?Last Taken ?Type acetaminophen 325 mg tablet 325 mg PO QID PRN Fever Or Pain 04/28/25 04/28/25 04/26/25 History (Tylenol) apixaban 5 mg tablet (Eliquis) 5 mg PO BID 04/28/25 04/28/25 04/27/25 08:00 History atorvastatin 40 mg tablet 40 mg PO BEDTIME 04/28/25 04/28/25 04/26/25 20:00 History carvedilol 6.25 mg tablet 6.25 mg PO BID 04/28/25 04/28/25 04/27/25 08:00 History furosemide 20 mg tablet See Rx Instructions .Route .COMPLEX 04/28/25 04/28/25 Unknown History furosemide 40 mg tablet 40 mg PO QAM 04/28/25 04/28/25 04/27/25 History phenylephrine HCl 0.5 % nasal spray 1 spray intranasal Q8H PRN 04/28/25 04/28/25 Unknown History allergies sacubitril 24 mg-valsartan 26 mg 1 tab PO BID 04/28/25 04/28/25 04/27/25 08:00 History tablet Allergies Allergy/AdvReac Type Severity Reaction Status Date / Time No Known Allergies Allergy Verified 01/18/23 12:42 PFSH Acute PFSH: Medical History (Updated 04/28/25 @ 09:29 by Ellis Alvarenga MD) CAD (coronary artery disease) Hypertension Surgical History (Updated 04/28/25 @ 09:23 by Ellis Alvarenga MD) Hx of CABG Family History Sister Cancer breast CAD (coronary artery disease) Brother Diabetes CAD (coronary artery disease) Father Diabetes CAD (coronary artery disease) Social History Marital status: Vitals/I&O/Wt Last Vital Signs Temp 98.4 F 04/28/25 05:15 Pulse 93 04/28/25 08:55 Resp 26 H 04/28/25 08:55 BP 141/105 04/28/25 08:55 Pulse Ox 94 04/28/25 08:55 O2 Del Method Nasal Cannula 04/28/25 08:33 O2 Flow Rate 1 04/28/25 07:17 04/27/25 04/28/25 04/28/25 22:59 06:59 14:59 Intake Total 0 / 0 Balance 0 / 0 Weight last 48 hrs Weight 91.3 kg Weight 81.647 kg Physical Exam Narrative: General: Alert and oriented, lying comfortably without any distress at room air and was eating his lunch and able to speak in full sentences HEENT: Normocephalic, atraumatic, grossly unremarkable exam Cardio: normal rate rhythm with irregular rhythm, normal S1-S2 without any murmurs, rubs, or gallops and JVD normal Respiratory: bilateral equal air entry, with mild insp crepts, but no wheezes GI: Abdomen soft, nontender, nondistended, normoactive bowel sounds present all 4 quadrants, Neuro: intact cranial nerves motor and sensory and cerebellar/coordination function without any focal neurological deficit Behavior: Appropriate and cooperative Extremities: Adequate palpable pulses, mild pitting trace edema Data 04/28/25 05:24 04/28/25 05:24 A&P Assessment and plan 1. Acute on chronic congestive heart failure, unspecified heart failure type: Pro BNP: ~40916 Echo resume home meds for HF, cardvedilol and entresto iv lasix 40mg bid daily wt and I/O telemetry trop trend not significant monitor vitals 2. Acute hypoxemic respiratory failure: likely related to acute on chronic CHF Echo to follow less likely to be infectious pathology, although increased WBCs and could be stress procal resp viral panel and flu ceftriaxone and azithryomycin, if all work up negative then consider d/c antibiotics ( pt did not take his flu shot) crp: ~6 however not significantly high for infectious reason 3. Atrial fibrillation: resume home medications carvedilol and apixaban telemetrY Echo 4. Pacemaker: stable, no concerns 5. High bilirubin: US liver hepatitis panel FU bilirubin and liver functions PDMP PDMP Reviewed: Not Reviewed Attestations Medical Necessity Statement*: patient will stay more than 2 midnights for the management of acute on chronic congestive HF, increased Bili and possible sepsis? Time Spent in Patient Care: 16 - 35 minutes (>than 50% of time spent in counselling and/or direct pt care on unit). Other Attestations: Patient condition has been discussed at length with the patient/family, I have independently reviewed the chart labs imaging/diagnostics/EKG. the goals of care and code status with the patient/family/NOK/legal quality assurance representative, and documented accordingly. The management has been done according to the current clinical condition with respect to patient goals of care and based on recommendations/guidelines. The patient/family has been informed about the current condition and further plan of care. Agreed with the plan of care and understood without any language barrier. Every effort was made to ensure accuracy of pharmacy data analyst. Any obvious errors or omissions should be clarified with the author of the document. Coding Level of Care Code 74898 Diagnoses Acute on chronic congestive heart failure, unspecified heart failure type I50.9 Heart failure chronicity: acute on chronic Heart failure type: unspecified Acute hypoxemic respiratory failure J96.01 Atrial fibrillation I48.91 Pacemaker Z95.0 High bilirubin R17
--- NOTE | 2025-04-28 09:23 | USCV_ITS ---
Dane Zimmer Age: 85 Gender: M : 1940 Exam Date: 04/28/2025 14:31 Ordering Phys: Ellis Alvarenga MD Technologist: Carlos Beckwith [place] [facility] [place]: acute on chronic congestive hf? BP: 152 / 95 HR: 80 Rhythm: Other Technical Quality: Adequate MEASUREMENTS (Male / Female) Normal Values 2D ECHO LV Diastolic Diameter PLAX 6.4 cm 4.2 - 5.9 / 3.9 - 5.3 cm IVS Diastolic Thickness 0.6 cm 0.6 - 1.0 / 0.6 - 0.9 cm IVS Systolic Thickness 0.5 cm LVPW Diastolic Thickness 0.4 cm 0.6 - 1.0 / 0.6 - 0.9 cm LVPW Systolic Thickness 0.8 cm LVOT Diameter 2.1 cm LV Ejection Fraction 2D Teich 14.7 % LV Ejection Fraction MOD 4C 30.3 % LV Ejection Fraction MOD 2C 30.1 % LV Ejection Fraction 2C AL 29.7 % LA Diameter 5.5 cm RA Systolic Volume 4C AL 66.6 ml RA Systolic Volume 4C MOD 67.1 ml LA Sys Volume AL 96.7 cm cubed LA Sys Volume Index AL 45.1 cm cubed/m squared Aorta at Sinotubular Diameter 2.9 cm IVC Diameter 1.9 cm M-MODE LA Ao Ratio MM 2.0 AV Cusp Separation MM 1.8 cm DOPPLER AV Peak Velocity 99.0 cm/s LVOT Peak Velocity 73.0 cm/s AV Area Cont Eq vti 3.2 cm squared AV Area Cont Eq pk 2.5 cm squared MV Peak Velocity 77.0 cm/s MV Area PHT 5.7 cm squared Mitral E to A Ratio 27.3 TV Peak Velocity 295.0 cm/s TR Peak Velocity 299.0 cm/s TR Peak Gradient 35.8 mmHg TR Mean Velocity 233.0 cm/s TR Mean Gradient 23.1 mmHg TR Velocity Time Integral 81.3 cm PV Peak Velocity 63.0 cm/s RV Ejection Time 0.2 s FINDINGS Left Ventricle Moderately increased left ventricular cavity size. Diffuse hypokinesia of the left ventricle, more so of the septum. The left ventricular ejection fraction was 30%( by MOD) Right Ventricle The right ventricule appears to be mildly dilated with possibly normal ejection fraction Right Atrium Pacemaker wire in the right atrium. Moderately increased right atrial size. Left Atrium Severely increased left atrial volume 45 ml/m squared. IA Septum Normal appearance of the interatrial septum. Mitral Valve Mild-moderate mitral valve regurgitation. Aortic Valve Minimally thickened aortic valve Tricuspid Valve Mild tricuspid valve regurgitation. Estimated pulmonary artery peak systolic pressure 39 mmHg Pulmonic Valve No gross abnormalities no Pericardium No pericardial effusion. Aorta Normal diameter of the aortic root and ascending thoracic aorta. IVC Normal inferior vena cava. CONCLUSIONS Moderately increased left ventricular cavity size. Diffuse hypokinesia of the left ventricle, more so of the septum. The left ventricular ejection fraction was 30%( by MOD). The right ventricule appears to be mildly dilated with possibly normal ejection fraction. Pacemaker wire in the right atrium/right ventricleSeverely increased left atrial volume 45 ml/m squared. Moderately increased right atrial size. Mild-moderate mitral valve regurgitation. Minimally thickened aortic valve. Mild tricuspid valve regurgitation. Estimated pulmonary artery peak systolic pressure 39 mmHg. There is no pericardial effusion. Compared to the study from 02/19/2023, there may not be a significant change Dr Asha Hernadez MD FAC (Electronically Signed) Final Date: 30 April 2025 08:57 S
[2025-04-28 10:11] LABS: Thyroid Stimulating Hormone 1.37 uIU/mL (0.27-4.20)
--- NOTE | 2025-04-28 11:45 | PC.CHAP ---
Pastoral Care Encounter/Spiritual Assessment Type of Contact [] Declined information officer visit [] Patient/Family/Request visit [] Outpatient visit [] Follow-up visit [] Physician referral [] Code/Alert [] Routine visit [] Staff referral [] Actively dying [] Patient sleeping [] Family support [] [] Out of room [] Palliative care [] [X] Receiving care in room [] Pre-surgical visit [] Trauma [] Long length of stay [] ICU visit [] Other: Relational/Emotional Strength [] Patient feels connected with others/family/visitors/staff [] Distress [] Loneliness/isolation [] Abandonment Spirituality of Patient [] Person of Carol [] Attends Scientologist of their Carol [] Believes in Prayer [] Reads Bible or Sikhism materials [] There are Spiritual issues to be addressed Continuous Loft Operator Interventions [] Prayer [] Active listening [] Non-anxious presence [] Spiritual/emotional support [] Crisis/trauma care [] Spiritual counseling [] Bereavement support [] Provided bereavement packet [] Provided Bible/devotional materials [] Provided toy/stuffed animal, coloring book to patient or family member [] Provided Communion [] Anointing/[place] [] Salvation [] Completed spiritual assessment [] Other: Impact on Illness or Injury [] Angry [] Fearful [] Anxious [] Often cries [] Exhaustion [] Unable to work [] Unable to attend nondenominational [] Unable to walk/stand [] Unable to read [] Unable to drive [] Unable to eat/drink [] Unable to sleep [] Unable to be with family [] Patient intubated [] Other: Summary Time spent with patient
[2025-04-28] MEDS: cefTRIAXone 1,000 mg SDV 1000 MG IVP (13:42)
[2025-04-28 13:55] LABS: Hepatitis A Antibody IgM Non-Reactive (Nonreactive); Hepatitis B Surface Antigen Non-Reactive (Nonreactive); Procalcitonin 0.10 ng/mL (0-0.5)
--- NOTE | 2025-04-28 15:10 | PC.NURSE ---
Patient refused to have walker catheter placed. Patient ambulates to bathroom. Unable to obtain accurate output. Dr Alvarenga is aware.
[2025-04-28 15:54] LABS: Coronavirus 229E,HKU1,NL63,OC4 Not Detected (NOT DETECT); Parainfluenza Virus Type 1 Not Detected (NOT DETECT); Parainfluenza Virus Type 2 Not Detected (NOT DETECT); Parainfluenza Virus Type 3 Not Detected (NOT DETECT); Parainfluenza Virus Type 4 Not Detected (NOT DETECT); SARS-COV-2 Not Detected (NOT DETECT)
[2025-04-28] MEDS: pantoprazole 40 mg SDV IVP (16:21)
[2025-04-28] MEDS: FUROsemide 10 mg/mL SDV 4mL 40 MG IVP (21:04)
[2025-04-28] MEDS: saline nasal spray 44mL Btl 1 SPRAY NASAL (21:04)
[2025-04-29] VITALS (9 sets, daily range): BP systolic 103–130; BP diastolic 57–92; PULSE 63–91; RESP 18–30; TEMP 36.3–36.6; O2SAT 93–95
[2025-04-29 02:55] LABS: Hematocrit 37.5 % (37-53); Hemoglobin 12.80 g/dL (11.27-16.99); Mean Corpuscular HGB Conc 34.1 g/dL (30-55); Mean Corpuscular Hemoglobin 31.4 pg (27-33); Mean Corpuscular Volume 91.9 fl (82-101); Nucleated Red Blood Cells % 0 %; Platelet Count 134 10^3/cmm (157-399); Red Blood Count 4.08 10^6/uL (3.85-5.65); White Blood Count 10.89 10^3/uL (3.29-11.43)
[2025-04-29 03:11] LABS: Alanine Aminotransferase 35 U/L (0-41); Albumin Level 3.6 g/dL (3.5-5.2); Alkaline Phosphatase 103 U/L (40-130); Anion Gap 14.7 (5-19); Aspartate Amino Transferase 37 U/L (0-40); Blood Urea Nitrogen 22 mg/dL (8-23); Calcium 8.5 mg/dL (8.5-10.5); Carbon Dioxide 28 mmol/L (22-29); Chloride 101 mmol/L (98-107); Globulin 2.7 g/dL (1.3-4.6); Glucose 108 mg/dL (65-115); Osmolality Calculated 294 mOsm/kg (285-295); Potassium 3.7 mmol/L (3.5-5.1); Sodium 140 mmol/L (136-145); Total Protein 6.3 g/dL (6.6-8.7)
[2025-04-29] MEDS: FUROsemide 10 mg/mL SDV 4mL 40 MG IVP ×2 (07:48→20:04)
--- NOTE | 2025-04-29 08:34 | PC.NURSE ---
Provider ordered cardiac diet and 2000 ml fluid restriction.
--- NOTE | 2025-04-29 09:28 | USR_ITS ---
PROCEDURE INFORMATION: Exam: US Abdomen, Limited; Right Upper Quadrant Exam date and time: 04/29/2025 7:20 AM Age: 85 years old Clinical indication: Abnormal findings; Abnormal lab test; Other: High bilirubin; Additional info: High bilirubin? To look for biliary system, TECHNIQUE: Imaging protocol: Real time ultrasound of the abdomen with image documentation. Limited exam focused on the right upper quadrant. COMPARISON: No relevant prior studies available. FINDINGS: Liver: Normal. No masses. 14.2 cm in length. Gallbladder: Normal. No gallstones. Borderline gallbladder wall thickening. Biliary ducts: Normal. No stones. No dilation. Common bile duct measures 0.3 cm in diameter. Pancreas: Obscured by shadowing from bowel gas. Right kidney: Normal. No mass. No hydronephrosis. Right kidney measures 11 cm in length. US/US liver 02614 IMPRESSION: 1. Borderline gallbladder wall thickening may be exaggerated by underdistention. No definite evidence of acute cholecystitis. 2. No biliary ductal dilatation identified.
[2025-04-29] MEDS: cefTRIAXone 1,000 mg SDV 1000 MG IVP (13:26)
[2025-04-29] MEDS: pantoprazole 40 mg SDV IVP (16:43)
--- NOTE | 2025-04-29 21:08 | P.PN_ITS ---
Subjective 2 Subjective: Late entry, patient was seen on 04/29 at 10:45 AM Patient presented on 04/28/25 with shortness of breath, LLE and orthopnea. Curerntly being treated for acute on chronic heart failure. Reports feeling better since admission, reports improvement in lower extremity edema and breathing. No other questions or concerns expressed Medications: Medication Review Details: Current inpatient medications reviewed Vitals/I&O/Wt Last Vital Signs Temp 97.7 F 04/29/25 20:11 Pulse 88 04/29/25 20:52 Resp 18 04/29/25 20:52 BP 128/92 04/29/25 20:11 Pulse Ox 93 04/29/25 20:52 O2 Del Method Nasal Cannula 04/29/25 20:52 O2 Flow Rate 1 04/29/25 20:52 04/29/25 04/29/25 04/29/25 06:59 14:59 22:59 Intake Total 480 / 480 730 / 1210 Output Total 475 / 900 1000 / 1000 175 / 1175 Balance -475 / -170 -520 / -520 555 / 35 Weight last 48 hrs Weight 88 kg Weight 88 kg Weight 91.3 kg Weight 81.647 kg Physical Exam 2 Narrative: Constitutional: NAD Neuro: AOx3, no facial asymmetry or unilateral weakness Head: NC/AT Eyes: PERRLA, EOMI Ears: Normal external ears. Hard of hearing. Nose: Normal external nose. No epistaxis. Throat: MMM Respiratory: Diminished. No accessory muscle use. On supplemental oxygen. Cardiovascular: Regular. No murmur. Extremities: BLE edema trace Gastrointestinal: Soft. NT. ND. +BS Genitourinary: No walker catheter Data 04/29/25 02:45 04/29/25 02:45 A&P Assessment and plan 1. Acute on chronic heart failure: Plan: # Acute on chronic congestive heart failure - echo done today 04/29, results pending - being diuresed with furosemide 40 mg IV BID, continue - on GDMT carvedilol, entresto - check CBC, CMP, # Acute hypoxic respiratory failure In the setting of decompensated heart failure Not oxygen dependent at baseline - RVP positive for Human Rhino/Entero virus, treated via supportive care - still on supplemental O2, continue to wean as able - on abx, consider discontinuing on 04/30 # Atrial fibrillation Continues to be in afib, rate controlled - on apixaban and carvedilol # Elevated bilirubin 2.2 -> 1.8 limited abdominal u/s showing borderline gallbladder wall thickening, no definite evidence of acute cystitis, no biliary ductal dilation identified PDMP PDMP Reviewed: Not Reviewed Attestations 2 Medical Necessity Statement*: following up on management of heart failure, patient will stay more than 2 midnights for the management of his condition Coding Level of Care Code Acute Code for Chg Fwd Diagnoses Acute on chronic heart failure I50.9
[2025-04-29] MEDS: saline nasal spray 44mL Btl 1 SPRAY NASAL (22:00)
--- NOTE | 2025-04-29 22:42 | PC.NURSE ---
04/29 0505- Patient c/o congestion and coughing frequently. Upon ascultating breath sounds patient is wheezing bilterally, Spo2 94% on 2l. Dr. Hassan notified and MD to place orders. 2240- Patient c/o SOB and congestion, upon ascultation patient is wheezing, spo2 95% on 2 L. Patient received lasix around 1999 and PRN breathing treatment around 2099. Also gave patient ocean spray to help with nasal congestion. Dr. Hassan notified and MD to look at chart.
[2025-04-30] VITALS (9 sets, daily range): BP systolic 100–123; BP diastolic 64–73; PULSE 75–90; RESP 17–29; TEMP 36.1–36.6; O2SAT 92–97
--- NOTE | 2025-04-30 01:28 | PC.NURSE ---
Addendum entered by Kaelyn Hoang, RN 04/30/25 05:08: 0251- Updated Dr. Hassan that patient received PO kcl, AM labs were drawn with K of 3.6 and Mg of 1.9. Patient still having frequent multiform PVC's. MD to place orders for 1 gm of mg. 0441- Asked Dr. Hassan if pacemaker needed to be interogaed due to patient stating it was a defib but no shocks administer during VT episode. Per MD okay to interogate pacemaker. When this nurse went to ask patient what brand he had, patient was unsure. Will attempt to call family around 0600 to get brand of pacemaker. Original Note: Patient monitor displayed VT, This RN to go down to check on patient. Patient awake in bed asking what is that noise . BP taken BP 117/79 HR in the 90's O2 93%. Verified lead placement. Dr. Hassan notified regarding 21 beat run of VT, tele strip posted in chart. to order 40 mg KCL, current K level 3.7 and mg 2. This nurse also obtained EKG due to frequent PVC's .
[2025-04-30 02:20] LABS: Hematocrit 40.2 % (37-53); Hemoglobin 13.70 g/dL (11.27-16.99); Mean Corpuscular HGB Conc 34.1 g/dL (30-55); Mean Corpuscular Hemoglobin 31.9 pg (27-33); Mean Corpuscular Volume 93.7 fl (82-101); Nucleated Red Blood Cells % 0 %; Platelet Count 157 10^3/cmm (157-399); Red Blood Count 4.29 10^6/uL (3.85-5.65); White Blood Count 14.97 10^3/uL (3.29-11.43)
[2025-04-30 02:32] LABS: Anion Gap 13.6 (5-19); Blood Urea Nitrogen 20 mg/dL (8-23); Calcium 8.4 mg/dL (8.5-10.5); Carbon Dioxide 29 mmol/L (22-29); Chloride 98 mmol/L (98-107); Glucose 125 mg/dL (65-115); Osmolality Calculated 288 mOsm/kg (285-295); Potassium 3.6 mmol/L (3.5-5.1); Sodium 137 mmol/L (136-145)
[2025-04-30 02:34] LABS: Magnesium 1.9 mg/dL (1.7-2.3)
[2025-04-30] MEDS: magnesium sulfate premix 1 GM/100 ML PIGGYBACK IV (03:15)
--- NOTE | 2025-04-30 08:40 | P.PN_ITS ---
Subjective 2 Subjective: Spoke to patient at bedside. Patient's son also present. Patient reports feeling well overall. No fever or chills. He continues to have URI symptoms of sinus congestion and cough w/ purulence. On 2L of oxygen w/ SpO2 at 96%. He is not oxygen dependent at baseline. Denies chest pain. BLE edema improving. Patient has a pacemaker ([employer]tr[employer]). Paced at times. Overnight there was concern for disrhythmia. Patient does not follow with cardiology at present time. Nurses interrogated the device. Notes SOA to have improved. Denies abdominal pain, but notes he has chronic ongoing discomfort. No N/V/D/C. Appetite stable, tolerates food. Last BM 04/29/25. He is not getting out of much. discussed questions and concerns with son discussed weaning patient off O2 as tolerates w/ RT discussed patient's overnight events, concerns and plan of care with RN Medications: Medication Review Details: Current active (scheduled) Meds reviewed Apixaban 5 mg twice daily Carvedilol 6.25 mg twice daily Entresto twice daily Furosemide 40 mg twice daily Atorvastatin 40 mg nightly Azithromycin 500 mg daily Ceftriaxone 1 g daily Guaifenesin 600 mg twice daily Pantoprazole 40 mg daily Senna lax 17.2 mg at bedtime 04/30/2025 AM received 1 gm magnesium scruggs lfate and 40 mEq KCl repletion (one time) Vitals/I&O/Wt Last Vital Signs Temp 97.0 F L 04/30/25 08:00 Pulse 87 04/30/25 08:37 Resp 20 H 04/30/25 08:37 BP 119/73 04/30/25 08:00 Pulse Ox 96 04/30/25 08:37 O2 Del Method Nasal Cannula 04/30/25 08:37 O2 Flow Rate 2 04/30/25 08:37 04/29/25 04/30/25 04/30/25 22:59 06:59 14:59 Intake Total 730 / 1210 580 / 1790 Output Total 175 / 1175 325 / 1500 Balance 555 / 35 255 / 290 Weight last 48 hrs Weight 88.6 kg Weight 88 kg Weight 88 kg Weight 91.3 kg Physical Exam 2 Narrative: Constitutional: NAD Neuro: AOx3, no facial asymmetry or unilateral weakness Head: NC/AT Eyes: PERRLA, gaze conjugate Ears: Normal external ears. Hard of hearing. Nose: Normal external nose. No epistaxis. Throat: MMM Respiratory: Expiratory wheezing. No accessory muscle use. On supplemental oxygen at 2L w/ SpO2 96% Cardiovascular: Regular. No murmur. + PPM Extremities: BLE edema trace Gastrointestinal: Rounded, soft. NT. ND. +BS Genitourinary: No walker catheter Data 04/30/25 01:50 04/30/25 01:50 Other Labs: 04/30/25 0150 labs reviewed Leukocytosis 13.51 (04/28) -> 10.89 (04/29) -> 14.97 (04/30) Platelets 166 (04/28) -> 134 (04/29) -> 157 (04/30) Electrolytes WNL. K 3.6 and Mg 1.9 (repleted overnight) Glu elevated, but stable Micro: No new labs Echo: Radiologist's impression: ECHO resulted, reviewed ECHO 04/28/24. Impression from cardiology. - Moderately increased left ventricular cavity size. Diffuse hypokinesia of the left ventricle, more so of the septum. The left ventricular ejection fraction was 30%( by MOD). - The right ventricule appears to be mildly dilated with possibly normal ejection fraction. - Pacemaker wire in the right atrium/right ventricle - Severely increased left atrial volume 45 ml/m squared. - Moderately increased right atrial size. - Mild-moderate mitral valve regurgitation. - Minimally thickened aortic valve. - Mild tricuspid valve regurgitation. Estimated pulmonary artery peak systolic pressure 39 mmHg. - There is no pericardial effusion. Compared to the study from 02/19/2023, there may not be a ignificant change A&P Assessment and plan 1. 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 Atrial fibrillation: 3. Acute hypoxemic respiratory failure: 4. Enteroviral infection: 5. High bilirubin: Plan: # [id number] HF with reduced EF Echo (04/29/2025) LVEF 30%. RV possibly mildly. Pacemaker wire in the right atrium/right ventricle. Severely increased left atrial volume. Moderately increased right atrial size. Mild to moderate MV regurgitation. Minimally thickened aortic valve. Mild tricuspid valve regurgitation with PASP 39 mmHg. Patient currently does not follow with cardiology. - Spoke to cardiology Dr. Ceron Patient case discussed No immediate consult needed at this time, patient to set-up care with outpatient, already has pending appointment in May 2025 - Continue diuresing with furosemide 40 mg IV BID Asked nurses to get a standing weight on him today - Current GDMT Carvedilol 6.25 mg twice daily - continue Entresto twice daily - continue Furosemide 40 mg twice daily - on HOLD, receiving IV diuresis - AM labs ordered: CBC, CMP, Mg # Atrial fibrillation # PPM ([employer]) in situ - on apixaban and carvedilol - Maintain K > 4.0 and Mg > 2.0 required K/Mg repletion today # Acute hypoxic respiratory failure In the setting of decompensated heart failure and viral illness Not oxygen dependent at baseline - continues to be on oxygen at 2L, continue to wean as able discussed w/ RT directly need to wean as tolerates - will make his breathing tx scheduled - received antibiotics this admission azithromycin 04/28-04/30 ceftriaxone 04/28 - to current, will plan to d/c tomorrow if labs stable, viral illness suspected # Human Rhino/Entero virus - RVP positive for Human Rhino/Entero virus (04/28/25) - supportive care # Elevated bilirubin Limited Abdominal Ultrasound showing borderline gallbladder wall thickening, no definite evidence of acute cholecystitis, no biliary ductal dilation identified. - no acute findings - suspect elevation in bilirubin to reflect congestive hepatopathy PDMP PDMP Reviewed: Not Reviewed Attestations 2 Medical Necessity Statement*: Patient remains inpatient. Appropriate due to ongoing medical needs, risk of deterioration and continued requirement for hospital level monitoring and treatment. Is being managed for decompensated heart failure. Time Spent in Patient Care: I spent 37 minutes today in total patient care time. This includes review of the patient's overnight events, vital signs, labs and imaging. In addition, time was spent to examine the patient and answer many questions from patient's son. Furthermore, time taken for care coordination discussing plan of care with the nurse, respiratory therapy and contacting cardiology, as well as documenting today's visit. Coding Level of Care Code 81489 Diagnoses Acute on chronic heart failure with reduced ejection fraction (HFrEF, <= 40%) I50.23 Atrial fibrillation I48.91 Acute hypoxemic respiratory failure J96.01 Enteroviral infection B34.1 High bilirubin R17
[2025-04-30] MEDS: FUROsemide 10 mg/mL SDV 4mL 40 MG IVP ×2 (08:52→21:53)
--- NOTE | 2025-04-30 10:44 | PC.SOCIAL ---
IMM Updated Updated pt on IMM. No questions voiced. Provided pt a copy. Initialed, dated, & timed a copy & placed in chart.
[2025-04-30] MEDS: cefTRIAXone 1,000 mg SDV 1000 MG IVP (14:38)
[2025-04-30] MEDS: pantoprazole 40 mg SDV IVP (18:03)
--- NOTE | 2025-04-30 19:09 | PC.NURSE ---
per provider a consult to cardiology is placed
[2025-05-01] VITALS (13 sets, daily range): BP systolic 115–129; BP diastolic 65–82; PULSE 76–94; RESP 16–27; TEMP 36.3–36.8; O2SAT 87–97
[2025-05-01 03:24] LABS: Hematocrit 37.5 % (37-53); Hemoglobin 12.70 g/dL (11.27-16.99); Mean Corpuscular HGB Conc 33.9 g/dL (30-55); Mean Corpuscular Hemoglobin 31.4 pg (27-33); Mean Corpuscular Volume 92.8 fl (82-101); Platelet Count 166 10^3/cmm (157-399); Red Blood Count 4.04 10^6/uL (3.85-5.65); White Blood Count 8.84 10^3/uL (3.29-11.43)
[2025-05-01 03:54] LABS: Alanine Aminotransferase 37 U/L (0-41); Albumin Level 3.3 g/dL (3.5-5.2); Alkaline Phosphatase 106 U/L (40-130); Anion Gap 12.4 (5-19); Aspartate Amino Transferase 30 U/L (0-40); Blood Urea Nitrogen 16 mg/dL (8-23); Calcium 8.4 mg/dL (8.5-10.5); Carbon Dioxide 31 mmol/L (22-29); Chloride 100 mmol/L (98-107); Globulin 2.9 g/dL (1.3-4.6); Glucose 105 mg/dL (65-115); Magnesium 2.1 mg/dL (1.7-2.3); Osmolality Calculated 292 mOsm/kg (285-295); Potassium 3.4 mmol/L (3.5-5.1); Sodium 140 mmol/L (136-145); Total Protein 6.2 g/dL (6.6-8.7)
[2025-05-01 03:59] LABS: Procalcitonin 0.14 ng/mL (0-0.5)
--- NOTE | 2025-05-01 04:17 | PC.NURSE ---
0158- Patient had two runs of VT the first one had an 8 beat run and the second run a 12 beat run. Patient resting in bed with no complaints. Current BP 118/73. Dr. Hassan notified and no new orders received. 0414- Notified Dr. Hassan regarding low K of 3.[address] orders.
[2025-05-01 04:29] LABS: Absolute Segmented Neutrophil 6.6 10/cmm (1.6-7.1); Total Cells Counted 100 (0-100)
[2025-05-01] MEDS: FUROsemide 10 mg/mL SDV 4mL 40 MG IVP (09:00)
--- NOTE | 2025-05-01 09:19 | PM.PN ---
Vitals/I&O/Wt Last Vital Signs Temp 98.2 F 05/01/25 08:00 Pulse 82 05/01/25 08:23 Resp 20 H 05/01/25 08:23 BP 129/72 05/01/25 08:00 Pulse Ox 95 05/01/25 08:23 O2 Del Method Nasal Cannula 05/01/25 08:23 O2 Flow Rate 2 05/01/25 08:23 04/30/25 05/01/25 05/01/25 22:59 06:59 14:59 Intake Total 610 / 970 480 / 1450 Output Total 525 / 1575 600 / 2175 200 / 200 Balance 85 / -605 -120 / -725 -200 / -200 Weight last 48 hrs Weight 86.183 kg Weight 86.183 kg Weight 88.6 kg Physical Exam Narrative: Constitutional: NAD Neuro: AOx3, no facial asymmetry or unilateral weakness Head: NC/AT Eyes: PERRLA, gaze conjugate Ears: Normal external ears. Hard of hearing. Nose: Normal external nose. No epistaxis. Throat: MMM Respiratory: Diminished throughout. LLL w/ expiratory wheeze. No accessory muscle use. On supplemental oxygen at 2L Cardiovascular: Regular. No murmur. + PPM Extremities: No edema bilateraly. Gastrointestinal: Rounded, soft. NT. ND. +BS Genitourinary: No walker catheter Musculoskeletal: Moves all extremities. Strength 5/5 in all extremities. Data 05/01/25 02:50 05/01/25 02:50 Other Labs: Labs, 05/01/25 0250... reviewed Infection/Inflammation PCT 0.14 Hemogram WBC 8.84 RBC 4.04 PLT 166 HGB 12.7 HCT 37.5 Chemistry Na 140 K 3.4 Mg 2.1 Cl 100 CO2 31 AG 12.4 BUN 16 Cr 0.8 AST 30 ALT 37 ALP 106 T.Bili 1.3 Alb 3.3 T.Protein 6.2 A&P Assessment and plan 1. 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 Atrial fibrillation: 3. Acute hypoxemic respiratory failure: 4. Enteroviral infection: 5. High bilirubin: Plan: # [id number] HF with reduced EF Echo (04/29/2025) LVEF 30%. RV possibly mildly. Pacemaker wire in the right atrium/right ventricle. Severely increased left atrial volume. Moderately increased right atrial size. Mild to moderate MV regurgitation. Minimally thickened aortic valve. Mild tricuspid valve regurgitation with PASP 39 mmHg. Patient currently does not follow with cardiology. - Spoke to cardiology Dr. Ceron 04/30 Patient case discussed No immediate consult needed at this time, patient to set-up care with outpatient Patient already has a pending, new patient appointment on 05/14/25 - Starting to exhibits signs of contraction alkalosis. Will stop IV diuretics at this time. Now sufficiency diuresed. Transition to home oral diuretic regimen (furosemide 40 mg PO BID) tomorrow, 05/02 Weight change this admission, 91.3 kg (04/28) -> 86.18 kg (05/01), diuresed ~ 5.1 kg up to this point - Current GDMT Carvedilol 6.25 mg twice daily - continue Entresto twice daily - continue Furosemide 40 mg twice daily, resume 05/02 - Add 20 mEq KCl daily - AM labs ordered: BMP, Mg - Plan to likely discharge tomorrow 05/02 # Contraction alkalosis Suspect to be from diuresis Will hold second dose of furosemide today. Discontinued IV furosemide. - Re-evaluate in am 05/02 # Permanent atrial fibrillation # PPM (Wanderflytronic) in situ - on apixaban and carvedilol - Maintain K > 4.0 and Mg > 2.0 required K/Mg repletion today 05/01 K 3.4 received 40 mEq KCl overnight Mg 2.1 # Acute hypoxic respiratory failure In the setting of decompensated heart failure and viral illness Not oxygen dependent at baseline - continues to be on oxygen at 2L He required 1 L during the day while awake and oxygen level was increased to 2 L nocturnally. Today 05/01, ordered home O2 evaluation. May need to have oxygen set-up at discharge. Potentially has underlying sleep apnea. Discussed with son need to follow-up with PCP for outpatient sleep study. - Doing much better with scheduled DuoNebs Not on bronchodilators at home, will plan to order at discharge with bronchodilator - received antibiotics this admission azithromycin 04/28-04/30 ceftriaxone 04/28 - 04/30, will discontinue today, no indication of an infectious process # Human Rhino/Entero virus - RVP positive for Human Rhino/Entero virus (04/28/25) - supportive care, improving # Elevated bilirubin Limited Abdominal Ultrasound showing borderline gallbladder wall thickening, no definite evidence of acute cholecystitis, no biliary ductal dilation identified. - no acute findings - suspect elevation in bilirubin to reflect congestive hepatopathy, improved T.Bili trend since admission: 2.2 (04/28) -> 1.8 (04/29) -> 1.3 (05/01) VTE Ppx: on apixaban PDMP PDMP Reviewed: Not Reviewed Attestations Medical Necessity Statement*: Patient remains inpatient. Appropriate due to ongoing medical needs, risk of deterioration and continued requirement for hospital level monitoring and treatment. Is being managed for decompensated heart failure and hypoxic respiratory failure. Time Spent in Patient Care: I spent 37 minutes today in total patient care time. This includes review of the patient's overnight events, vital signs, labs and imaging. In addition, time was spent to examine the patient and answer many questions from patient's son. Furthermore, time taken for care coordination discussing plan of care with the nurse, respiratory therapy and contacting cardiology, as well as documenting today's visit. Coding Level of Care Code Acute Code for Chg Fwd Diagnoses Acute on chronic heart failure with reduced ejection fraction (HFrEF, <= 40%) I50.23 Atrial fibrillation I48.91 Acute hypoxemic respiratory failure J96.01 Enteroviral infection B34.1 High bilirubin R17
[2025-05-01] MEDS: pantoprazole 40 mg SDV IVP (17:08)
[2025-05-02] VITALS (8 sets, daily range): BP systolic 120–132; BP diastolic 67–80; PULSE 80–94; RESP 16–22; TEMP 36–36.4; O2SAT 92–96; BMI 27.2
[2025-05-02 06:34] LABS: Anion Gap 14.7 (5-19); Blood Urea Nitrogen 17 mg/dL (8-23); Calcium 8.5 mg/dL (8.5-10.5); Carbon Dioxide 28 mmol/L (22-29); Chloride 101 mmol/L (98-107); Glucose 89 mg/dL (65-115); Osmolality Calculated 291 mOsm/kg (285-295); Potassium 3.7 mmol/L (3.5-5.1); Sodium 140 mmol/L (136-145)
--- NOTE | 2025-05-02 09:51 | P.DS_ITS ---
Discharge Providers Date of Admission: 04/28/25 07:17 Date of Discharge: May 02, 2025 Attending Provider at Admission: Jorge Yusuf Attending Provider at Discharge: Ruiz Mata NP Primary Care Provider: Ronen Macias Diagnoses at Discharge Discharge Diagnosis 1. Acute on chronic heart failure with reduced ejection fraction (HFrEF, <= 40%): Details from hospital stay: Echo (04/29/2025) LVEF 30%. RV possibly mildly. Pacemaker wire in the right atrium/right ventricle. Severely increased left atrial volume. Moderately increased right atrial size. Mild to moderate MV regurgitation. Minimally thickened aortic valve. Mild tricuspid valve regurgitation with PASP 39 mmHg. Patient currently does not follow with cardiology. - Spoke to cardiology Dr. Ceron 04/30 Patient case discussed No immediate consult needed at this time, patient to set-up care with outpatient Patient already has a pending, new patient appointment on 05/14/25 2. Atrial fibrillation: Details from hospital stay: Atrial fibrillation, PPM in situ Continue apixaban Continue carvedilol Required K and Mg repletion while inpatient 3. Acute hypoxemic respiratory failure: Details from hospital stay: In the setting of decompensated heart failure and viral illness Prior to admission not oxygen dependent Continued to require supplemental oxygen, 1 L during the day and 2 L at night despite adequate diuresis and stabilization of heart failure Oxygen study revealed need for supplemental oxygen Discharging with home oxygen Recommend evaluation for sleep apnea in the outpatient setting. This was discussed with patient's son. 4. Enteroviral infection: Details from hospital stay: Respiratory viral panel positive for human rhino/enterovirus (04/28/25) Treated via supportive care Discharging with bronchodilator Empirically treated with azithromycin and ceftriaxone (04/28-04/30) while infectious workup was in progress. Infectious work-up was negative. 5. High bilirubin: Details from hospital stay: Limited abdominal ultrasound showed borderline gallbladder wall thickening, no definite evidence of cholecystitis and no biliary ductal dilation. Elevated bilirubin on presentation, improved as patient diuresed T.Bili trend since admission: 2.2 (04/28) -> 1.8 (04/29) -> 1.3 (05/01) Suspect elevation in bilirubin to reflect congestive hepatopathy Other Information Additional DC diagnoses/information: 05/01/25 developed contraction alkalosis, which resolved the following after second dose of IV furosemide was held. Reason for Visit Reason for Visit: SOB / CHF / Unsteady Brief History: Patient presented on 04/28/2025 with shortness of breath, lower extremity edema, orthopnea and PND. Subsequently, he was admitted for decompensated heart failure. He denied fever, chills, upper respiratory symptoms, or chest discomfort. Initial evaluation was notable for acute decompensated congestive heart failure with BNP of 18,000 and chest x-ray (04/28/25) showing mild cardiomegaly and uncoiling of the thoracic aorta, stable diffuse interstitial prominence, slight left-sided pleural thickening and presence of pacemaker. Hospital Course Hospital Course Patient was started on IV furosemide 40 mg twice daily with effective diuresis. His home guide directed medical therapy, including carvedilol and subcubitril/valsartan (Entresto) was resumed. A transthoracic echocardiogram (04/29/2025) revealed LVEF 30%. RV possibly mildly. Pacemaker wire in the right atrium/right ventricle. Severely increased left atrial volume. Moderately increased right atrial size. Mild to moderate MV regurgitation. Minimally thickened aortic valve. Mild tricuspid valve regurgitation with PASP 39 mmHg. Patient's case was discussed with cardiology over the phone, discussion entailed need for cardiology inpatient consult, however recommendations were made for outpatient follow-up. 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 He does have multiple underlying cardiac pathologies / co-morbidities. That said, he does have a new patient appointment with local cardiology office on 05/14/2025. During hospitalization, the patient required 2 L supplemental oxygen. He was gradually weaned to 1 L while awake, but nocturnal desaturations into the upper 80s necessitated resumption of 2 L overnight. Patient continued to require supplemental oxygen despite adequate diuresis and stabilization of heart failure. Subsequently, a home O2 study was done and he does qualify for supplemental oxygen. Respiratory viral panel returned positive for human rhinovirus/enterovirus, and supportive care was provided. Patient was found to have elevated bilirubin on admission. No abdominal pain or associated GI symptoms reported. A right upper quadrant ultrasound showed borderline gallbladder wall thickening without sonographic evidence of cholecystitis, biliary obstruction or ductal dilation. He is total bilirubin level improved with diuresis, consistent with passive hepatic congestion from heart failure. 05/02/25 labs reviewed Sodium 140 Potassium 3.7 Chloride 101 Calcium 8.5 Glucose 89 Carbon dioxide 28 Anion Gap 14.7 BUN 17 Creatinine 0.8 Weight change this admission, 91.3 kg (04/28) -> 86.18 kg (05/01) -> 88.5 (05/02) New meds / changes Furosemide 40 mg PO twice daily Potassium chloride 20 mEq daily Adding Breo-Ellipta 1 puff daily and albuterol HFA prn Physical Exam Narrative: Constitutional: NAD Neuro: AOx3, no facial asymmetry or unilateral weakness Head: NC/AT Eyes: PERRLA, gaze conjugate Ears: Normal external ears. Hard of hearing. Nose: Normal external nose. No epistaxis. Throat: MMM Respiratory: Expiratory wheeze throughout. No accessory muscle use. On supplemental oxygen at 2L Cardiovascular: Regular. No murmur. + PPM Extremities: No edema bilateraly. Gastrointestinal: Rounded, soft. NT. ND. +BS Genitourinary: No walker catheter Musculoskeletal: Moves all extremities. Strength 5/5 in all extremities. Discharge Data Studies Completed and Pending Completed Studies During Hospitalization Category Date Time Status XR chest 1V portable [id number] Stat Exams 04/28/25 05:20 Completed CV. echo complete* [id number] Routine Ultrasound 04/28/25 09:23 [place] liver [id number] Routine Ultrasound 04/29/25 09:28 Completed Radiology Impressions Chest X-Ray 04/28/25 05:20 IMPRESSION: Pacemaker. Liver Ultrasound 04/29/25 09:28 IMPRESSION: * Borderline gallbladder wall thickening may be exaggerated by underdistention. No definite evidence of acute cholecystitis. * No biliary ductal dilatation identified. Laboratory Results WBC 8.84 10^3/uL (3.29-11.43) 05/01/25 02:50 RBC 4.04 10^6/uL (3.85-5.65) 05/01/25 02:50 Hgb 12.70 g/dL (11.27-16.99) 05/01/25 02:50 Hct 37.5 % (37-53) 05/01/25 02:50 MCV 92.8 fl (82-101) 05/01/25 02:50 MCH 31.4 pg (27-33) 05/01/25 02:50 MCHC 33.9 g/dL (30-55) 05/01/25 02:50 RDW 14.8 % (12.1-15.1) 05/01/25 02:50 Plt Count 166 10^3/cmm (157-399) 05/01/25 02:50 MPV 11.5 fL (7.4-10.4) H 05/01/25 02:50 Neut % (Auto) 85.5 % 04/30/25 01:50 Lymph % (Auto) 3.7 % 04/30/25 01:50 [place] % (Auto) 10.1 % 04/30/25 01:50 Eos % (Auto) 0.3 % 04/30/25 01:50 Baso % (Auto) 0.1 % 04/30/25 01:50 Neut # (Auto) 12.82 10^3/uL (1.8-7.7) H 04/30/25 01:50 Lymph # (Auto) 0.6 10^3/uL (0.8-4.8) L 04/30/25 01:50 [place] # (Auto) 1.5 10^3/uL (0.2-0.9) H 04/30/25 01:50 Eos # (Auto) 0.0 10^3/uL (0.0-0.8) 04/30/25 01:50 Baso # (Auto) 0.0 10^3/uL (0.0-0.1) 04/30/25 01:50 Nucleated RBC % (auto) 0 % 04/30/25 01:50 Total Counted 100 (0-100) 05/01/25 02:50 Atypical Lymphs % Not Reportable 05/01/25 02:50 Segmented Neutrophils 75 % 05/01/25 02:50 Band Neutrophils Not Reportable 05/01/25 02:50 Lymphocytes (Manual) 13 % 05/01/25 02:50 Monocytes (Manual) 12.0 % 05/01/25 02:50 Absolute Monocytes 1.1 10^3/cmm (0.1-0.6) H 05/01/25 02:50 Eosinophils (Manual) 0 % 05/01/25 02:50 Absolute Eosinophils 0.0 10^3/cmm (0.0-0.7) 05/01/25 02:50 Basophils (Manual) 0.0 % 05/01/25 02:50 Absolute Basophils 0.0 10^3/cmm (0.0-0.2) 05/01/25 02:50 Nucleated RBCs # 0.0 /100WBC 04/30/25 01:50 Platelet Estimate Normal (Normal) 05/01/25 02:50 Specimen Type Venous 04/28/25 05:24 Sample Site n/a 04/28/25 05:24 Alexi Test Pos 04/28/25 05:24 VBG pH 7.36 (7.32-7.42) 04/28/25 05:24 VBG pCO2 48.0 mmHg (41-51) 04/28/25 05:24 VBG pO2 30.6 mmHg (25-40) 04/28/25 05:24 VBG HCO3 27.2 mmol/L (24-28) 04/28/25 05:24 VBG Base Excess 0.9 mmol/L (-3.0-3.0) 04/28/25 05:24 VBG Hematocrit 47.0 % (42-52) 04/28/25 05:24 O2 Delivery Device Room air 04/28/25 05:24 FiO2 21.0 % 04/28/25 05:24 Change Management Manager ID [id number] 04/28/25 05:24 Sodium 140 mmol/L (136-145) 05/02/25 04:10 Potassium 3.7 mmol/L (3.5-5.1) 05/02/25 04:10 Chloride 101 mmol/L (98-107) 05/02/25 04:10 Carbon Dioxide 28 mmol/L (22-29) 05/02/25 04:10 Anion Gap 14.7 (5-19) 05/02/25 04:10 BUN 17 mg/dL (8-23) 05/02/25 04:10 Creatinine 0.8 mg/dL (0.7-1.2) 05/02/25 04:10 GFR Calculation Not Reportable 05/02/25 04:10 Glucose 89 mg/dL (65-115) 05/02/25 04:10 Calculated Osmolality 291 mOsm/kg (285-295) 05/02/25 04:10 Lactic Acid 2.9 mmol/L (0.5-2.2) H 04/28/25 05:24 Lactic Acid (Sepsis) 2.3 mmol/L (0.5-2.2) H 04/28/25 07:25 Calcium 8.5 mg/dL (8.5-10.5) 05/02/25 04:10 Phosphorus 3.2 mg/dL (2.5-4.5) 04/28/25 07:25 Magnesium 2.1 mg/dL (1.7-2.3) 05/01/25 02:50 Total Bilirubin 1.3 mg/dL (0.15-1.2) H 05/01/25 02:50 AST 30 U/L (0-40) 05/01/25 02:50 ALT 37 U/L (0-41) 05/01/25 02:50 Alkaline Phosphatase 106 U/L (40-130) 05/01/25 02:50 Troponin T Baseline 29 ng/L (0-15) H 04/28/25 05:24 Troponin T 120 Minute 24.12 ng/L (0-15) H 04/28/25 07:25 Delta Troponin T -4.88 ABS# (0-10) L 04/28/25 07:25 C-React Prot High Sens 6.370 mg/dL (0.0-0.3) H 04/28/25 05:24 NT-Pro-B Natriuret Pep 29249 pg/mL (0-450) H 04/28/25 05:24 Total Protein 6.2 g/dL (6.6-8.7) L 05/01/25 02:50 Albumin 3.3 g/dL (3.5-5.2) L 05/01/25 02:50 Globulin 2.9 g/dL (1.3-4.6) 05/01/25 02:50 Procalcitonin 0.14 ng/mL (0-0.5) 05/01/25 02:50 TSH 1.37 uIU/mL (0.27-4.20) 04/28/25 07:25 Adenovirus (PCR) Not detected (NOT DETECT) 04/28/25 13:43 C. pneumoniae DNA (PCR) Not detected (NOT DETECT) 04/28/25 13:43 Coronavirus 229E (PCR) Not detected (NOT DETECT) 04/28/25 13:43 Hepatitis A IgM Ab Non-reactive (Nonreactive) 04/28/25 05:24 Hep Bs Antigen Non-reactive (Nonreactive) 04/28/25 05:24 Hep B Core IgM Ab Non-reactive (Nonreactive) 04/28/25 05:24 Hepatitis C Antibody Non-reactive (Nonreactive) 04/28/25 05:24 Human Metapneumovir PCR Not detected (NOT DETECT) 04/28/25 13:43 Influenza A (H1) PCR Not detected (NOT DETECT) 04/28/25 13:43 Influenza A (PCR) Cancelled 04/28/25 13:43 Influ A (H1/09) PCR Not detected (NOT DETECT) 04/28/25 13:43 Influenza A (H3) PCR Not detected (NOT DETECT) 04/28/25 13:43 Influenza Type A (PCR) Not detected (NOT DETECT) 04/28/25 13:43 Influenza Type B (PCR) Cancelled 04/28/25 13:43 Influenza Type B (PCR) Not detected (NOT DETECT) 04/28/25 13:43 M. pneumoniae (PCR) Not detected (NOT DETECT) 04/28/25 13:43 Parainfluenza 1 (PCR) Not detected (NOT DETECT) 04/28/25 13:43 Parainfluenza 2 (PCR) Not detected (NOT DETECT) 04/28/25 13:43 Parainfluenza 3 (PCR) Not detected (NOT DETECT) 04/28/25 13:43 Parainfluenza 4 (PCR) Not detected (NOT DETECT) 04/28/25 13:43 RSV (PCR) Cancelled 04/28/25 13:43 RSV Type A (PCR) Not detected (NOT DETECT) 04/28/25 13:43 RSV Type B (PCR) Not detected (NOT DETECT) 04/28/25 13:43 Entero/Rhino (PCR) Detected (NOT DETECT) A 04/28/25 13:43 SARS-CoV-2 (PCR) Cancelled 04/28/25 13:43 SARS-CoV-2 (PCR) Not detected (NOT DETECT) 04/28/25 13:43 Imaging Echo: Radiologist's impression: Echo 04/29/25 * Moderately increased left ventricular cavity size. * Diffuse hypokinesia of the left ventricle, more so of the septum. * The left ventricular ejection fraction was 30%( by MOD). * The right ventricule appears to be mildly dilated with possibly normal ejection fraction. * Pacemaker wire in the right atrium/right ventricle * Severely increased left atrial volume 45 ml/m squared. * Moderately increased right atrial size. * Mild-moderate mitral valve regurgitation. * Minimally thickened aortic valve. * Mild tricuspid valve regurgitation. Estimated pulmonary artery peak systolic pressure 39 mmHg. * There is no pericardial effusion. Compared to the study from 02/19/2023, there may not be a significant change Vitals Last Vital Signs Temp 97.6 F 05/02/25 08:00 Pulse 86 05/02/25 09:15 Resp 16 05/02/25 09:08 BP 122/67 05/02/25 08:00 Pulse Ox 96 05/02/25 09:08 O2 Del Method Nasal Cannula 05/02/25 09:08 O2 Flow Rate 2 05/02/25 09:08 Discharge Plan Discharge Patient Disposition: Home Condition: Stable Prescriptions: New albuterol sulfate [Ventolin HFA] 90 mcg/actuation HFA aerosol inhaler 1 inh inhalation Q4H PRN (Reason: shortness of breath or wheezing) Qty: 6.7 0RF Rx Instructions: New med for patient. Please provide education to patient on use. fluticasone furoate-vilanterol [Breo Ellipta] 100-25 mcg/dose blister with device 1 inh inhalation DAILY Qty: 60 0RF Rx Instructions: new med for patient, please provide education on use pantoprazole 40 mg tablet,delayed release (DR/EC) 40 mg PO DAILY Qty: 30 0RF furosemide 40 mg Tablet 40 mg PO BID@08,16 Qty: 60 0RF potassium chloride [Klor-Con M20] 20 mEq Tablet,Er Particles/Crystals 20 meq PO DAILY Qty: 30 0RF Continued Eliquis 5 mg tablet 5 mg PO BID atorvastatin 40 mg tablet 40 mg PO BEDTIME acetaminophen [Tylenol] 325 mg Tablet 325 mg PO QID PRN (Reason: Fever Or Pain) carvedilol 6.25 mg tablet 6.25 mg PO BID Sinex Regular 0.5 % [place],Non-Aerosol 1 spray INTRANASAL Q8H PRN (Reason: allergies) sacubitril-valsartan 24-26 mg tablet 1 tab PO BID Discontinued furosemide 40 mg tablet 40 mg PO QAM furosemide 20 mg tablet See Rx Instructions .ROUTE .COMPLEX Rx Instructions: TAKE 1 TABLET BY MOUTH ONCE DAILY AFTER LUNCH Discharge Order = DC NOW: Discharge Order (Routine); Ordered 05/02/25 Ordered By: Ruiz Mata Other Ambulatory Orders: DME: Oxygen (Order) Location: None Selected Ordered By: Ruiz Mata [facility]: [facility] [place] Ronen Macias [Primary Care Provider, Family Practice] - 05/07/25 2:20 pm Chery Bunn FNP [Nurse Practitioner, Cardiology] - 05/14/25 12:30 pm Discharge Diet: Cardiac Discharge Activity: Resume usual activity Patient Instructions: Atrial Fibrillation, Furosemide (By mouth), Albuterol (By breathing), Potassium Chloride (By mouth), Fluticasone (By breathing), Pantoprazole (By mouth), Heart Failure (DC), Pacemaker (DC), Acute Respiratory Failure (GEN), Opioid Safety, Patient Portal & [place] Instructions Discharge Attestations Time Spent in Discharge Care*: greater than 30 min Specific Discharge Activities: educating patient, educating and/or supporting family/caregiver (Discussion with patient to adhere to his cardioprotective meds and diuretic. Weighing self daily if able. Cardiac diet and 2 L fluid restriction. Following up with cardiology.), discussing with senior case manager/social workers/dc planners (Spoke with RN. Social work in progress of setting patient up with home oxygen.), documenting/other paperwork and brennen luating patient/reviewing data Other discharge activites (optional): 42 minutes spent on discharge of this patient today Status at Discharge: Cognitive status at discharge: cognitively intact , Functional status at discharge: independent ambulation , Overall status at discharge: patient is back to baseline Quality Metrics Clinical Quality Measures [ No reported AMI, CVA or VTE this stay] Coding Level of Care Code 85819 Diagnoses Acute on chronic heart failure with reduced ejection fraction (HFrEF, <= 40%) I50.23 Atrial fibrillation I48.91 Acute hypoxemic respiratory failure J96.01 Enteroviral infection B34.1 High bilirubin R17 Time Spent (min) 42
--- NOTE | 2025-05-02 11:14 | PC.SOCIAL ---
IMM Updated Updated pt on IMM. No questions voiced. Provided pt a copy. Initialed, dated, & timed copy in chart.
== END 2025-05-02 11:35 | disposition home or self-care (01) | DRG 291 ==
LOC: ER 07:18 → CSU 07:34
PROVIDERS: Student in an Organized Health Care Education/Training Program; Admitting Provider Internal Medicine; Emergency Provider Emergency Medicine; PCP Family Medicine; Visit Provider Nurse Practitioner Gerontology
DX: I11.0 Hypertensive heart disease with heart failure (principal); I50.23 Acute on chronic systolic (congestive) heart failure; J96.01 Acute respiratory failure with hypoxia; E87.3 Alkalosis; B34.1 Enterovirus infection, unspecified; I25.5 Ischemic cardiomyopathy; R00.1 Bradycardia, unspecified; R82.2 Biliuria; I48.0 Paroxysmal atrial fibrillation; I25.10 Atherosclerotic heart disease of native coronary artery without angina pectoris; Z79.01 Long term (current) use of anticoagulants; Z95.0 Presence of cardiac pacemaker; Z87.891 Personal history of nicotine dependence; Z11.52 Encounter for screening for COVID-19; Z95.1 Presence of aortocoronary bypass graft; Z79.82 Long term (current) use of aspirin; Z79.899 Other long term (current) drug therapy
CPT/HCPCS: 36415; 71045; 76705; 80048; 80053; 80074; 82803; 83605; 83735; 83880; 84100; 84145; 84443; 84484; 85007; 85025; 85027; 86141; 87486; 87581; 87633; 87637; 93005; 93306; 94640; 94760; 96374; 99285; J0456; J0696; J1938; J2470; J3475; J7050; J9999